=== PATIENT | male | born 1965 | race Caucasian/White ===

== ENCOUNTER 2019-02-22 14:18 | Inpatient (IN) | payer OTHER ==
[2019-02-22 14:50] LABS: Hematocrit 39 % (42-52); Hemoglobin 13.1 g/dL (14.0-18.0); Mean Corpuscular HGB Conc 33 g/dL (31-36); Mean Corpuscular Hemoglobin 31 pg (27-31); Mean Corpuscular Volume 92 fL (80-94); Platelet Count 311 10^3/uL (150-450); Red Blood Count 4.27 10^6 /uL (4.18-5.48); Red Cell Distribution Width 13 % (10-15); White Blood Count 34.6 10^3/uL (3.5-10.8)
--- NOTE | 2019-02-22 14:55 | ED ---
HPI Chest Pain - HPI Summary HPI Summary: Patient is a 53 y/o M presenting to the ED for a chief complaint of diffuse chest pain that began 2 days ago. Patient describes his chest pain as a pressure sensation that he rates as a 6/10 in severity. Patient also notes shortness of breath that worsens with exertion, generalized body aches, headache , diaphoresis, 10 pound weight loss, and neck pain that began 2 days ago and has since improved. Patient denies abdominal pain, nausea, vomiting, diarrhea, rash, or cough. He denies any aggravating and alleviating factors. PMHx is significant for HTN and DM for which he takes Metformin. He received an influenza vaccine in October 2018. - History of Current Complaint Chief Complaint: EDChestPainROMI Time Seen by Provider: 02/22/19 14:51 Hx Obtained From: Patient Onset/Duration: Atraumatic, Still Present Timing: Lasting Days - 2 days ago Initial Severity: Moderate Current Severity: Moderate Pain Intensity: 6 Pain Scale Used: 0-10 Numeric Chest Pain Location: Diffuse Chest Pain Radiates: No Character: Pressure/Squeezing Aggravating Factor(s): Nothing Alleviating Factor(s): Nothing Associated Signs and Symptoms: Positive: Chest Pain, Headaches, Shortness of Breath, Diaphoresis. Negative: Nausea, Cough, Abdominal Pain, Vomiting - Allergy/Home Medications Allergies/Adverse Reactions: Allergies Allergy/AdvReac Type Severity Reaction Status Date / Time No Known Allergies Allergy Verified 08/09/14 08:37 Home Medications: Home Medications Aspirin EC TAB* [Ecotrin EC Low Dose 81 MG*] 81 mg PO DAILY 02/22/19 [History Confirmed 02/22/19] Simvastatin (NF) [Zocor (NF)] 40 mg PO DAILY 02/22/19 [History Confirmed ] glipiZIDE [Glipizide ER] 10 mg PO BID 02/22/19 [History Confirmed 02/22/19] metFORMIN* [Glucophage 1000 MG TAB *] 1,000 mg PO BID 02/22/19 [History Confirmed 02/22/19] PMH/Surg Hx/FS Hx/Imm Hx Previously Healthy: Yes Endocrine/Hematology History: Reports: Hx Diabetes - New onset DM II- 2011 Denies: Hx Thyroid Disease Cardiovascular History: Reports: Hx Hypercholesterolemia, Hx Hypertension - meds Respiratory History: Reports: Hx Sleep Apnea - current CPAP user Denies: Hx Asthma, Hx Chronic Obstructive Pulmonary Disease (COPD) GI History: Reports: Hx Gastroesophageal Reflux Disease Denies: Hx Ulcer Sensory History: Denies: Hx Legally Blind, Hx Deafness Opthamlomology History: Denies: Hx Legally Blind EENT History: Denies: Hx Deafness - Surgical History Surgical History: None Surgery Procedure, Year, and Place: None Infectious Disease History: No Infectious Disease History: Denies: Hx Hepatitis, Hx Human Immunodeficiency Virus (HIV), Traveled Outside the [place] in Last 30 Days - Family History Known Family History: Negative: Seizure Disorder - Social History Occupation: Unemployed Alcohol Use: None Hx Substance Use: No Substance Use Type: Reports: None Hx Tobacco Use: No Smoking Status (MU): Never Smoked Tobacco Review of Systems Positive: Skin Diaphoresis, Other - Positive 10 pound weight loss Positive: Chest Pain Positive: Shortness Of Breath - With exertion. Negative: Cough Negative: Abdominal Pain, Vomiting, Diarrhea, Nausea Positive: Myalgia - Generalized body aches and neck pain Negative: Rash Positive: Headache All Other Systems Reviewed And Are Negative: Yes Physical Exam - Summary Physical Exam Summary: Constitutional: Well-developed, Obese, Alert. (-) Distressed. Diaphoretic. Skin: Warm, Dry HENT: Normocephalic; Atraumatic. No tonsilar exudates or erythema. Eyes: Conjunctiva normal Neck: Musculoskeletal ROM normal neck. (-) JVD, (-) Stridor, (-) Nuchal rigidity Cardio: Rhythm regular, rate normal, Heart sounds normal; Intact distal pulses; Radial pulses are 2+ and symmetric. (-) Murmur Pulmonary/Chest wall: Effort normal. (-) Respiratory distress, (-) Wheezes, (-) Rales Abd: Soft, (-) tenderness, (-) Distension, (-) Guarding, (-) Rebound Musculoskeletal: (-) Edema Lymph: (-) Cervical adenopathy. No cervical lymphadenopathy. Neuro: Alert, Oriented x3 Psych: Mood and affect Normal Triage Information Reviewed: Yes Vital Signs On Initial Exam: Initial Vitals Temp Pulse Resp BP Pulse Ox 98.5 F 108 22 107/38 97 02/22/19 14:19 02/22/19 14:19 02/22/19 14:19 02/22/19 14:19 02/22/19 14:19 Vital Signs Reviewed: Yes Procedures - Sedation Patient Received Moderate/Deep Sedation with Procedure: No Diagnostics - Vital Signs Vital Signs Temp Pulse Resp BP Pulse Ox 02/22/19 14:19 98.5 F 108 22 107/38 97 - Laboratory Lab Results: Lab Results 02/22/19 Range/Units 14:30 WBC 34.6 H (3.5-10.8) 10^3/uL RBC 4.27 (4.18-5.48) 10^6 /uL Hgb 13.1 L (14.0-18.0) g/dL Hct 39 L (42-52) % MCV 92 (80-94) fL MCH 31 (27-31) pg MCHC 33 (31-36) g/dL RDW 13 (10-15) % Plt Count 311 (150-450) 10^3/uL MPV 8.0 (7.4-10.4) fL Neut % (Auto) Pending Lymph % (Auto) Pending [place] % (Auto) Pending Eos % (Auto) Pending Baso % (Auto) Pending Absolute Neuts (auto) Pending Absolute Lymphs (auto) Pending Absolute Monos (auto) Pending Absolute Eos (auto) Pending Absolute Basos (auto) Pending Absolute Nucleated RBC Pending Nucleated RBC % Pending Result Diagrams: 02/22/19 14:30 02/22/19 14:30 Lab Statement: Any lab studies that have been ordered have been reviewed, and results considered in the medical decision making process. - Radiology Chest X-ray Radiology Interpretation Completed By: Radiologist Summary of Radiographic Findings: Chest X-ray IMPRESSION: LOW LUNG VOLUMES, SMALL RIGHT BASILAR INFILTRATE. Reviewed by Dr. Thomas. - CT Chest CT CT Interpretation Completed By: Radiologist Summary of CT Findings: Chest CT IMPRESSION: 1. ENLARGED THYROID GLAND WITH LARGE MASS ARISING FROM THE LEFT THYROID LOBE CAUSING COMPRESSION AND NARROWING OF THE TRACHEA. RECOMMEND AN ULTRASOUND OF THE THYROID GLAND FOR FURTHER EVALUATION. IF THE PATIENT HAS PRIOR OUTSIDE STUDIES THESE WOULD BE HELPFUL FOR COMPARISON. 2. HEPATIC STEATOSIS. 3. SPLENOMEGALY. Reviewed by Dr. Thomas. Neck CT CT Interpretation Completed By: Radiologist Summary of CT Findings: Neck CT IMPRESSION: THYROMEGALY, GREATER ON THE LEFT THAN ON THE RIGHT, WITH MASS EFFECT UPON THE PROXIMAL TRACHEA. Reviewed by Dr. Thomas. - EKG 14:25 Cardiac Rate: NL - 91 BPM EKG Rhythm: Sinus Rhythm ST Segment: Normal Ectopy: None Summary of EKG Findings: An EKG at 14:25 reveals normal sinus rhythm with 91 BPM , T wave inversions in lead III and V1, nml axis, nml intervals. No STEMI. No acute changes. No prior EKG is available to comparison. Reviewed and interpreted by Dr. Thomas. Re-Evaluation - Re-Evaluation First Eval Re-Evaluation Time: 17:15 Comment: BP improved to 90's systolic. LA elevated to 3, pending repeat. Will also repeat troponin. Got vanc/zosyn. Admitted to ICU, flu pending Chest Pain Course/Dx - Course Course Of Treatment: 53 y/o male w hx HTN, DM p/w CP, SOB, myalgias. - VS initially notable for mild tachycardia, soft blood pressure. Afebrile. On exam patient is diaphoretic, no respiratory distress. Labs notable for leukocytosis of 35, new JAVIER of 2.2 from normal creatinine. Also troponin 0.33. A significant EKG changes, suspect troponin elevation 2/2 underlying infectious process and demand ischemia. Chest x-ray shows a deviated trachea, CT noncontrast obtained shows thyroid mass. Regarding infectious process, patient is pending a flu test, no pneumonia on chest x-ray, no abdominal pain to suggest GI process, UA also ordered. Patient report mild neck pain, and headache, lower suspicion for meningitis given well appearance, lack of altered mental status, no nuchal rigidity on exam. discussed with on-call consulting sales manager who requested ENT consult for thyroid mass and concern for infection. ENT to reviewimages. Patient was given 3 L of fluids (20 cc/kg) with blood pressure in the low 90s. Patient denies any skin lesions/new rashes. Plan. IV fluid bolus (4L = 30 mL/kg). serum lactate. blood cultures x 2. broad spectrum antibiotics. transfer to higher level of care - Diagnoses Provider Diagnoses: Thyromegaly, Shortness of breath, Sepsis - Provider Notifications Discussed Care Of Patient With: Dayanna Mccullough - At 16:48, Dr. Mccullough reviewed the patients case and agrees to admit the patient to [facility] with a diagnosis of shortness of breath, sepsis, and thyromegaly. Time Discussed With Above Provider: 16:48 Instructed by Provider To: Admit As Inpatient - Critical Care Time Critical Care Time: 30-74 min - Upon my evaluation, this patient had a high probability of imminent or life-threatening deterioration due to sepsis which required my direct attention, intervention, and personal management. I have personally provided 30 minutes of critical care time exclusive of time spent on separately billable procedures. Time includes review of laboratory data, radiology results, discussion with consultants, and monitoring for potential decompensation. Interventions were performed as documented above. Discharge ED - Sign-Out/Discharge Documenting (check all that apply): Patient Departure - Admit - Discharge Plan Condition: Stable Disposition: ADMITTED TO [facility] Referrals: Marianela Gutierrez NP [Primary Care Provider] - - Billing Disposition and Condition Condition: STABLE Disposition: Admitted to [facility] - Attestation Statements Document Initiated by Scribe: Yes Documenting Scribe: Sahra Wise Provider For Whom Scribe is Documenting (Include Credential): Gutierrez Thomas MD Scribe Attestation: ISahra, scribed for Gutierrez Thomas MD on 02/22/19 at 1727. Scribe Documentation Reviewed: Yes Provider Attestation: The documentation as recorded by the Sahra morales accurately reflects the service I personally performed and the decisions made by , Gutierrez Thomas MD Status of Scribe Document: Viewed
[2019-02-22 14:58] LABS: INR 1.38 (0.82-1.09)
[2019-02-22 15:08] LABS: ALT 22 U/L (7-52); AST 30 U/L (13-39); Albumin 3.7 g/dL (3.2-5.2); Albumin/Globulin Ratio 0.9 (1-3); Alkaline Phosphatase 149 U/L (34-104); Anion Gap 17 mmol/L (2-11); BUN/Creatinine Ratio 11.3 (8-20); Blood Urea Nitrogen 25 mg/dL (6-24); CO2 Carbon Dioxide 22 mmol/L (22-32); Calcium 8.6 mg/dL (8.6-10.3); Chloride 96 mmol/L (101-111); EGFR African American 37.6 (>60); EGFR Non-African American 31.1 (>60); Globulin 3.9 g/dL (2-4); Glucose 82 mg/dL (70-100); Potassium 3.3 mmol/L (3.5-5.0); Sodium 135 mmol/L (135-145); Total Protein 7.6 g/dL (6.4-8.9)
[2019-02-22 15:11] LABS: Troponin I 0.33 ng/mL (<0.03)
[2019-02-22 15:19] LABS: ABS Basophils 0.2 10^3/ul (0-0.2); ABS Eosinophils 0.1 10^3/ul (0-0.6); ABS Lymphocytes 1.4 10^3/ul (1.0-4.8); ABS Monocytes 1.2 10^3/ul (0-0.8); ABS Neutrophils 31.8 10^3/ul (1.5-7.7); Eosinophil % 0.2 %; Lymphocyte % 4.1 %; Nucleated Red Blood Cells % 0.1
[2019-02-22] MEDS ORDERED: NS 0.9% 1000 ML** 1,000 ML IV ONE ×4 (15:37→17:33)
[2019-02-22] MEDS ORDERED: Piperacillin/Tazobac ADVAN(*) 3.375 GM in NS 0.9% 100 ML* 100 ML IVPB ONE (15:44)
[2019-02-22] MEDS ORDERED: Vancomycin(*) 2,000 MG in NS 0.9% 500 ML* 500 ML IVPB ONE (16:00)
[2019-02-22] MEDS ORDERED: NS 0.9% 500 ML* 500 ML ONE (16:00)
[2019-02-22] MEDS ORDERED: Vancomycin(*) 1,000 MG VIAL IVPB SCH (16:00)
--- NOTE | 2019-02-22 16:42 | HP ---
History of Present Illness - History of Present Illness Reason for Visit: malaise History of Present Illness: 53 yo M presented to the ED with chest pain x 2 days, shortness of breath worsened with exertion, generalized body aches, headache, diaphoresis, 10 pound weight loss and neck pain. Not meningismus. PMH of HTN and DM, otherwise healthy. On exam he was tachycardic to 108, mildly tachypneic to 22. temp normal at 98.5. Pulse ox 97 on RA. Initial BP 107/38. On exam pt noted to be diaphoretic. No nuchal rigidity. Mental status normal. No other findings. WBC 34.6. CXR with displaced trachea. CT neck and chest wtih enlarged thyroid gland with large mass arising from the left thyroid lobe causing compression and narrowing of the trachea. While in the ED his BP drifted down to the 70s. He was bolused a liter without improvement. Started on broadspectrum antibiotics. Admitted to ICU for futher care. Per patient chest pain is resolved. - Past Medical History Cardiac: HTN, Hyperlipidemia Endocrine: Diabetes - Past Surgical History Past Surgical History: None - Past Family History Family History: None - Past Social History Smoke: No Alcohol: None Drugs: None Review of Systems - Review of Systems Constitutional: Positive: Sweats, Malaise Respiratory: Positive: Shortness of Breath Cardiovascular: Positive: Chest Pain Musculoskeletal: Positive: Neck Pain, Other - Myalgias Neurological: Positive: Other - Headache Other: 10 lb weight loss - Medications/Allergies Allergies/Adverse Reactions: Allergies Allergy/AdvReac Type Severity Reaction Status Date / Time No Known Allergies Allergy Verified 08/09/14 08:37 Medications: Current Medications Sodium Chloride (Ns 0.9% 1000 Ml) 1,000 mls @ 1,000 mls/hr IV ONCE ONE Stop: 02/22/19 16:36 Last Admin: 02/22/19 15:40 Dose: 1,000 mls/hr Sodium Chloride (Ns 0.9% 1000 Ml) 1,000 mls @ 1,000 mls/hr IV ONCE ONE Stop: 02/22/19 16:43 Last Admin: 02/22/19 16:09 Dose: 1,000 mls/hr Vancomycin HCl 2,000 mg/ (Sodium Chloride) 500 mls @ 250 mls/hr IVPB ONCE ONE Stop: 02/22/19 17:59 Exam - Exam Vital Signs: Vital Signs (72 hours) 02/22/19 02/22/19 02/22/19 14:19 15:21 15:26 Temperature 98.5 F 97.1 F Pulse Rate 108 117 Respiratory 22 Rate Blood Pressure 107/38 82/52 (mmHg) O2 Sat by Pulse 97 92 Oximetry 02/22/19 02/22/19 02/22/19 15:32 15:35 15:37 Temperature Pulse Rate 97 93 88 Respiratory 21 28 Rate Blood Pressure 73/48 71/45 (mmHg) O2 Sat by Pulse 95 94 94 Oximetry General: Alert, Oriented x3, Cooperative, No acute distress HEENT: Atraumatic, EOMI Lungs: Clear to auscultation, Normal air movement Cardiovascular: Regular rate, Normal S1, Normal S2 Abdomen: Normal bowel sounds, Soft, No tenderness, Other - spleen enlarged, tip palpable Extremities: No clubbing, No cyanosis, Other - warm, dry (in ED was diaphoretic) Skin: No rashes, No breakdown, No significant lesion - No lymphadenopathy palpated at neck, axilla or groin Neurological: Normal speech, Normal tone Psych/Mental Status: Mental status NL, Mood NL Assessment/Plan - Assessment/Plan Assessment: 53 yo M presents with several day history of sore throat, chest pain, myalgia and poor appetite. Admitted for hypotension and leukocytosis concerning for sepsis. CT with new finding of thyroid mass and splenomegaly. Plan: Hospital Diagnoses: #1: Sepsis associated hypotension #2: NSTEMi, type 2 #3: thyroid mass #4: Leukocytosis Cardiovascular: (1) Sepsis associated hypotension;(2) NSTEMI, type 2; (3) essential HTN; (4) Hypercholesterolemia -- HR 84-117 -- SBP 73-107 -- Telemetry -- Cardiac markers Trop 0.33, follow trend Home meds: Simvastatin, ASA Pulmonary: (1) tracheal deviation secondary to thyroid mass; (2)hx of sleep apnea -- RR 21-36 -- sats 92-97 on RA -- CXR: underinflation. small right lung base infiltrate. Home meds: None Gastrointestinal: (1) Elevated ALK; (2) GERD; (3) Hepatic steatosis (seen on CT chest 02/22/2019) -- LFTs Tbili 0.70 ALK 149, follow trend AST 30 ALT 22 -- diet: NPO -- bowel regimen: None -- ulcer prophylaxis:not indicated at this time Home meds: None Endocrine: (1) Englargement of thyroid gland with heterogeneity; (2) Type 2 diabetes mellitus; (3) Splenomegaly (seen on CT chest 02/22/2019) -- monitor BGs -- TSH 3.0, within normal limits Home meds: Glipizide, Metformin Renal: (1) Hypokalemia; (2) Prerenal azotemia vs JAVIER -- UOP: strict ins and outs -- Cr 2.21, follow trend, hydrate -- Lytes Na 135 K 3.3, replace Ca 8.6 Mag ordered Phos ordered Home meds: None Infectious disease: (1) Sepsis vs SIRS; (2) Leukocytosis -- Tmax 98.5 -- WBC 34.6 -- Micro 02/22 Flu A&B pending MRSA pending UA ordered blood in process -- ABX Zosyn Vancomycin Home meds: None Neurologic: No acute issues Home meds: None Hematological: (1) Anemia -- Hgb 13.1, follow trend -- Plt 311 -- Coags INR 1.38 -- DVT prophylaxis: SQ Heparin Home meds: ASA Metabolic: No acute issues Home meds: None Other: No acute issues Home meds: None Deep vein thrombosis prophylaxis: SQ Heparin Dietary: Not indicated at this time Condition: serious Prognosis: guarded Code status: full Disposition: admit to ICU Cumulative time spent in the care of this patient (excluding any procedure time) : at least 60 minutes. Patient care included clinical interview (with patient and/or family), bedside exam of the patient, review of labs, x-rays, and other ancillary data, coordination of (respiratory, nursing care, review of patient's records, discussion regarding patients management with involved consultants, primary physician, pharmacists, and other healthcare personnel (dietary, case management , physical/occupational therapy etc.)
[2019-02-22 18:45] LABS: Influenza A Molecular NEGATIVE (Negative); Influenza B Molecular NEGATIVE (Negative)
[2019-02-22] MEDS: Morphine INJ* 2 MG/ML 1 ML SYRINGE (TWO MG - NEW SYRINGE VERSION) IV PRN ×2 (19:27→21:19)
[2019-02-22] MEDS ORDERED: Morphine INJ* 2 MG/ML 1 ML SYRINGE (TWO MG - NEW SYRINGE VERSION) IV ONE (21:00)
[2019-02-22 21:11] LABS: Free T4 0.91 ng/dL (0.61-1.12)
[2019-02-22 21:15] LABS: Thyroid Peroxidase Antibodies 76.02 IU/mL (<9)
[2019-02-22] MEDS ORDERED: Zosyn per Pharmacy* NOTE FOLLOW UP PRN (21:26)
[2019-02-22 21:48] LABS: Urine Appearance Cloudy; Urine Bilirubin Negative (Negative); Urine Blood Negative (Negative); Urine Color Amber; Urine Glucose Negative (Negative); Urine Ketones Negative (Negative); Urine Nitrite Negative (Negative); Urine Protein 2+(100 mg/dL) (Negative); Urine Specific Gravity 1.021 (1.010-1.030); Urine Urobilinogen Negative (Negative)
[2019-02-22 21:54] LABS: Urine Bacteria 1+ (Absent); Urine Red Blood Cell Trace(0-2/hpf) (Absent); Urine Squamous Epithelial Cell Present (Absent); Urine White Blood Cell 2+(11-20/hpf) (Absent)
[2019-02-22] MEDS: Albumin Human 25%* 25 GM/100 ML IV SCH (21:54)
[2019-02-22] MEDS: ZOSYN 3.375 GM Q8H per EXTENDED INFUSION IVPB SCH ×2 (22:13)
--- NOTE | 2019-02-22 22:15 | PN ---
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 Thyroglobulin Ab ordered
[2019-02-22] MEDS ORDERED: Acetaminophen TAB* 325 MG PO PRN (22:35)
[2019-02-22] MEDS ORDERED: LACTATED RINGERS 1000 ML/HR *Bolus IV ONE (23:00)
[2019-02-22] MEDS ORDERED: Dextrose 50% VIAL 50 ml ONE (23:15)
[2019-02-23] MEDS ORDERED: Dextrose 50% Syringe 50 ML* 25 GM/50 ML SYRINGE IV PUSH PRN (00:16)
[2019-02-23] MEDS ORDERED: Dextrose 50% VIAL 50 ml ONE (00:59)
[2019-02-23] MEDS: Lactated Ringers 1000 ML Bag* 1,000 ML IV SCH ×2 (01:11→17:13)
[2019-02-23] MEDS: Albumin Human 25%* 25 GM/100 ML IV SCH ×3 (04:04→17:12)
[2019-02-23 05:05] LABS: ABS Basophils 0.1 10^3/ul (0-0.2); ABS Eosinophils 0.1 10^3/ul (0-0.6); ABS Lymphocytes 2.2 10^3/ul (1.0-4.8); ABS Neutrophils 17.5 10^3/ul (1.5-7.7); Eosinophil % 0.4 %; Hematocrit 29 % (42-52); Hemoglobin 9.9 g/dL (14.0-18.0); Lymphocyte % 10.4 %; Mean Corpuscular HGB Conc 34 g/dL (31-36); Mean Corpuscular Hemoglobin 32 pg (27-31); Mean Corpuscular Volume 92 fL (80-94); Mean Platelet Volume 8.3 fL (7.4-10.4); Platelet Count 246 10^3/uL (150-450); Red Blood Count 3.14 10^6 /uL (4.18-5.48); Red Cell Distribution Width 13 % (10-15); White Blood Count 20.8 10^3/uL (3.5-10.8)
[2019-02-23 05:18] LABS: BUN/Creatinine Ratio 17.1 (8-20); Calcium 7.1 mg/dL (8.6-10.3); EGFR African American 63.7 (>60); EGFR Non-African American 52.6 (>60); Magnesium 1.4 mg/dL (1.9-2.7); Potassium 3.2 mmol/L (3.5-5.0)
[2019-02-23] MEDS: ZOSYN 3.375 GM Q8H per EXTENDED INFUSION IVPB SCH ×6 (05:45→21:44)
[2019-02-23] MEDS ORDERED: Magnesium Sulfate 2 GM IV* 2 GM/50 ML BAG IVPB ONE (05:52)
[2019-02-23] MEDS ORDERED: Potassium Chlor TAB* 20 MEQ TAB.ER PO ONE (05:52)
[2019-02-23] MEDS: Morphine INJ* 2 MG/ML 1 ML SYRINGE (TWO MG - NEW SYRINGE VERSION) IV PRN (06:10)
[2019-02-23] MEDS ORDERED: Calcium Gluconate INJ* 1 GM in NS 0.9% 50 ML* 50 ML IVPB ONE (08:30)
[2019-02-23] MEDS: KCL 10 MEQ/50 ML IVPREMIX* 10 MEQ/50 ML BAG IV SCH ×4 (08:43→13:50)
--- NOTE | 2019-02-23 10:47 | PN ---
Date of Service: 02/23/19 - HD 2 Critical Care Services: 53 yo M presented to the ED with chest pain x 2 days, shortness of breath worsened with exertion, generalized body aches, headache, diaphoresis, 10 pound weight loss and neck pain. Not meningismus. PMH of HTN and DM, otherwise healthy. On exam he was tachycardic to 108, mildly tachypneic to 22. temp normal at 98.5. Pulse ox 97 on RA. Initial BP 107/38. On exam pt noted to be diaphoretic. No nuchal rigidity. Mental status normal. No other findings. WBC 34.6. CXR with displaced trachea. CT neck and chest wtih enlarged thyroid gland with large mass arising from the left thyroid lobe causing compression and narrowing of the trachea. While in the ED his BP drifted down to the 70s. He was bolused a liter without improvement. Started on broadspectrum antibiotics. Admitted to ICU for futher care. Per patient chest pain is resolved. 02/23: Hypotensive overnight requiring IVF boluses, albumin and Midodrine. Feeling better today. Vital Signs: Temp Pulse Resp BP SpO2 FiO2 98.6 F 85 37 116/65 95 21 02/23/19 09:01 02/23/19 10:11 02/23/19 10:11 02/23/19 10:11 02/23/19 10:11 02/23 04:00 Physical Exam: Gen: resting comfortably HEENT: intact Lungs: CTAB Cardiac: RRR Abdomen: soft, obese, nontender Extremities: warm, dry Neuro: alert, oriented. Fluid Balance (Past 24 Hours): I= O= Net Intake & Output 02/21/19 02/22/19 02/23/19 02/24/19 06:59 06:59 06:59 06:59 Intake Total 7842 100 Output Total 1015 520 Balance 6827 -420 Weight 315 lb 4.176 oz Intake: IV Fluids 6602 LR 2502 NS (0.9%) 1000 IVPB 1140 50 NS (0.9%) 1140 50 Oral 50 Albumin 100 Output: Costello 1015 520 Other: Date of Last Bowel 02/23/18 Movement # Bowel Movements 1 Estimated Stool Amount Small Labs: Laboratory Results - last 24 hr 01/03/20 01/03/20 01/03/20 14:30 14:30 14:30 WBC 34.6 H RBC 4.27 Hgb 13.1 L Hct 39 L MCV 92 MCH 31 MCHC 33 RDW 13 Plt Count 311 MPV 8.0 Neut % (Auto) 91.8 Lymph % (Auto) 4.1 [place] % (Auto) 3.4 Eos % (Auto) 0.2 Baso % (Auto) 0.5 Absolute Neuts (auto) 31.8 H Absolute Lymphs (auto) 1.4 Absolute Monos (auto) 1.2 H Absolute Eos (auto) 0.1 Absolute Basos (auto) 0.2 Absolute Nucleated RBC 0.0 Immature Gran % 12.0 H Neutrophils % 77.0 Band Neutrophils % 12.0 H Lymphocytes % 5.0 Monocytes % 6.0 Nucleated RBC % 0.1 Normal RBC Morphology Normal INR (Anticoag Therapy) 1.38 H Sodium 135 Potassium 3.3 L Chloride 96 L Carbon Dioxide 22 Anion Gap 17 H BUN 25 H Creatinine 2.21 H Est GFR ( Amer) 37.6 Est GFR (Non-Af Amer) 31.1 BUN/Creatinine Ratio 11.3 Glucose 82 POC Glucose (mg/dL) Lactic Acid Calcium 8.6 Magnesium Total Bilirubin 0.70 AST 30 ALT 22 Alkaline Phosphatase 149 H Troponin I 0.33 H* Total Protein 7.6 Albumin 3.7 Globulin 3.9 Albumin/Globulin Ratio 0.9 L TSH 3.00 Free T4 Urine Color Urine Appearance Urine pH Ur Specific [place] Urine Protein Urine Ketones Urine Blood Urine Nitrate Urine Bilirubin Urine Urobilinogen Ur Leukocyte Esterase Urine WBC (Auto) Urine RBC (Auto) Ur Squamous Epith Cells Urine Bacteria Urine Glucose Thyroglobulin Antibody Thyroid Peroxidase Ab Influenza A (Rapid) Influenza B (Rapid) 02/22/19 02/22/19 02/22/19 16:03 18:00 19:30 WBC RBC Hgb Hct MCV MCH MCHC RDW Plt Count MPV Neut % (Auto) Lymph % (Auto) [place] % (Auto) Eos % (Auto) Baso % (Auto) Absolute Neuts (auto) Absolute Lymphs (auto) Absolute Monos (auto) Absolute Eos (auto) Absolute Basos (auto) Absolute Nucleated RBC Immature Gran % Neutrophils % Band Neutrophils % Lymphocytes % Monocytes % Nucleated RBC % Normal RBC Morphology INR (Anticoag Therapy) Sodium Potassium Chloride Carbon Dioxide Anion Gap BUN Creatinine Est GFR ( Amer) Est GFR (Non-Af Amer) BUN/Creatinine Ratio Glucose POC Glucose (mg/dL) Lactic Acid 3.0 H* Calcium Magnesium Total Bilirubin AST ALT Alkaline Phosphatase Troponin I 0.20 H* Total Protein Albumin Globulin Albumin/Globulin Ratio TSH Free T4 Urine Color Urine Appearance Urine pH Ur Specific [place] Urine Protein Urine Ketones Urine Blood Urine Nitrate Urine Bilirubin Urine Urobilinogen Ur Leukocyte Esterase Urine WBC (Auto) Urine RBC (Auto) Ur Squamous Epith Cells Urine Bacteria Urine Glucose Thyroglobulin Antibody Thyroid Peroxidase Ab Influenza A (Rapid) Negative Influenza B (Rapid) Negative 02/22/19 02/22/19 02/22/19 19:30 19:30 21:36 WBC RBC Hgb Hct MCV MCH MCHC RDW Plt Count MPV Neut % (Auto) Lymph % (Auto) [place] % (Auto) Eos % (Auto) Baso % (Auto) Absolute Neuts (auto) Absolute Lymphs (auto) Absolute Monos (auto) Absolute Eos (auto) Absolute Basos (auto) Absolute Nucleated RBC Immature Gran % Neutrophils % Band Neutrophils % Lymphocytes % Monocytes % Nucleated RBC % Normal RBC Morphology INR (Anticoag Therapy) Sodium Potassium Chloride Carbon Dioxide Anion Gap BUN Creatinine Est GFR ( Amer) Est GFR (Non-Af Amer) BUN/Creatinine Ratio Glucose POC Glucose (mg/dL) Lactic Acid 1.4 Calcium Magnesium Total Bilirubin AST ALT Alkaline Phosphatase Troponin I Total Protein Albumin Globulin Albumin/Globulin Ratio TSH Free T4 0.91 Urine Color Madhuri Urine Appearance Cloudy Urine pH 5.0 Ur Specific [place] 1.021 Urine Protein 2+(100 mg/dl) A Urine Ketones Negative Urine Blood Negative Urine Nitrate Negative Urine Bilirubin Negative Urine Urobilinogen Negative Ur Leukocyte Esterase Negative Urine WBC (Auto) 2+(11-20/hpf) A Urine RBC (Auto) Trace(0-2/hpf) Ur Squamous Epith Cells Present A Urine Bacteria 1+ A Urine Glucose Negative Thyroglobulin Antibody Thyroid Peroxidase Ab 76.02 H Influenza A (Rapid) Influenza B (Rapid) 02/22/19 02/22/19 02/23/19 23:04 23:11 00:55 WBC RBC Hgb Hct MCV MCH MCHC RDW Plt Count MPV Neut % (Auto) Lymph % (Auto) [place] % (Auto) Eos % (Auto) Baso % (Auto) Absolute Neuts (auto) Absolute Lymphs (auto) Absolute Monos (auto) Absolute Eos (auto) Absolute Basos (auto) Absolute Nucleated RBC Immature Gran % Neutrophils % Band Neutrophils % Lymphocytes % Monocytes % Nucleated RBC % Normal RBC Morphology INR (Anticoag Therapy) Sodium Potassium Chloride Carbon Dioxide Anion Gap BUN Creatinine Est GFR ( Amer) Est GFR (Non-Af Amer) BUN/Creatinine Ratio Glucose POC Glucose (mg/dL) 64 L 68 L Lactic Acid Calcium Magnesium Total Bilirubin AST ALT Alkaline Phosphatase Troponin I 0.02 Total Protein Albumin Globulin Albumin/Globulin Ratio TSH Free T4 Urine Color Urine Appearance Urine pH Ur Specific [place] Urine Protein Urine Ketones Urine Blood Urine Nitrate Urine Bilirubin Urine Urobilinogen Ur Leukocyte Esterase Urine WBC (Auto) Urine RBC (Auto) Ur Squamous Epith Cells Urine Bacteria Urine Glucose Thyroglobulin Antibody Thyroid Peroxidase Ab Influenza A (Rapid) Influenza B (Rapid) 02/23/19 02/23/19 02/23/19 01:16 03:35 04:17 WBC RBC Hgb Hct MCV MCH MCHC RDW Plt Count MPV Neut % (Auto) Lymph % (Auto) [place] % (Auto) Eos % (Auto) Baso % (Auto) Absolute Neuts (auto) Absolute Lymphs (auto) Absolute Monos (auto) Absolute Eos (auto) Absolute Basos (auto) Absolute Nucleated RBC Immature Gran % Neutrophils % Band Neutrophils % Lymphocytes % Monocytes % Nucleated RBC % Normal RBC Morphology INR (Anticoag Therapy) Sodium 137 Potassium 3.2 L Chloride 105 Carbon Dioxide 22 Anion Gap 10 BUN 24 Creatinine 1.40 H Est GFR ( Amer) 63.7 Est GFR (Non-Af Amer) 52.6 BUN/Creatinine Ratio 17.1 Glucose 78 POC Glucose (mg/dL) 175 H 74 Lactic Acid Calcium 7.1 L Magnesium 1.4 L Total Bilirubin AST ALT Alkaline Phosphatase Troponin I Total Protein Albumin Globulin Albumin/Globulin Ratio TSH Free T4 Urine Color Urine Appearance Urine pH Ur Specific [place] Urine Protein Urine Ketones Urine Blood Urine Nitrate Urine Bilirubin Urine Urobilinogen Ur Leukocyte Esterase Urine WBC (Auto) Urine RBC (Auto) Ur Squamous Epith Cells Urine Bacteria Urine Glucose Thyroglobulin Antibody Thyroid Peroxidase Ab Influenza A (Rapid) Influenza B (Rapid) 02/23/19 02/23/19 02/23/19 04:17 04:17 04:17 WBC 20.8 H RBC 3.14 L Hgb 9.9 L Hct 29 L MCV 92 MCH 32 H MCHC 34 RDW 13 Plt Count 246 MPV 8.3 Neut % (Auto) 84.3 Lymph % (Auto) 10.4 [place] % (Auto) 4.7 Eos % (Auto) 0.4 Baso % (Auto) 0.2 Absolute Neuts (auto) 17.5 H Absolute Lymphs (auto) 2.2 Absolute Monos (auto) 1.0 H Absolute Eos (auto) 0.1 Absolute Basos (auto) 0.1 Absolute Nucleated RBC 0.0 Immature Gran % Neutrophils % Band Neutrophils % Lymphocytes % Monocytes % Nucleated RBC % 0.0 Normal RBC Morphology INR (Anticoag Therapy) Sodium Potassium Chloride Carbon Dioxide Anion Gap BUN Creatinine Est GFR ( Amer) Est GFR (Non-Af Amer) BUN/Creatinine Ratio Glucose POC Glucose (mg/dL) Lactic Acid 0.7 Calcium Magnesium Total Bilirubin AST ALT Alkaline Phosphatase Troponin I Total Protein Albumin Globulin Albumin/Globulin Ratio TSH Free T4 Urine Color Urine Appearance Urine pH Ur Specific [place] Urine Protein Urine Ketones Urine Blood Urine Nitrate Urine Bilirubin Urine Urobilinogen Ur Leukocyte Esterase Urine WBC (Auto) Urine RBC (Auto) Ur Squamous Epith Cells Urine Bacteria Urine Glucose Thyroglobulin Antibody 0.0 Thyroid Peroxidase Ab Influenza A (Rapid) Influenza B (Rapid) Studies: 02/22 CT brain - no acute findings 02/22 CT neck - thyromegaly, greater on the left than on the right, with mass effect upon the proximal trachea / CT chest - enlarged thyroid gland with mass effect causing compression and narrowing of the trachea. hepatic steatosis splenomegaly / CXR - low lung volumes. small right basilar infiltrate. Nutrition: general diet Impression: 53 yo M with PMH of DM, HLD and HTN presented on 02/22 with recent 10 lb weight loss, diffuse myalgias, malaise and diaphoresis. Found to have enlarged thyroid , splenomegaly and leukocytosis. Admitted to ICU for soft BPs responsive to IVF. Plan: Plan: Hospital Diagnoses: #1: Sepsis associated hypotension #2: NSTEMi, type 2 #3: thyroid mass #4: Leukocytosis Cardiovascular: (1) Sepsis associated hypotension;(2) NSTEMI, type 2; (3) essential HTN; (4) Hypercholesterolemia -- HR 60-117, < 85 since midnight -- SBP 71-137 -- Telemetry -- Cardiac markers Trop 0.02 from 0.20 from 0.33 -- Scheduled Albumin -- Scheduled Midodrine Home meds: Simvastatin, ASA Pulmonary: (1) tracheal deviation secondary to thyroid mass; (2) hx of sleep apnea -- RR 20-37 -- sats 89-98 on RA -- CXR, 02/22: underinflation. small right lung base infiltrate. Home meds: None Gastrointestinal: (1) Elevated ALK; (2) GERD; (3) Hepatic steatosis (seen on CT chest 02/22/2019) -- LFTs Tbili 0.70 ALK 149, follow trend AST 30 ALT 22 -- diet: general diet -- bowel regimen: None -- ulcer prophylaxis:not indicated at this time Home meds: None Endocrine: (1) Englargement of thyroid gland with heterogeneity; (2) Type 2 diabetes mellitus; (3) Splenomegaly (seen on CT chest 02/22/2019) -- CT abdomen ordered to assess adrenals -- monitor BGs -- Thyroid funciton tests TSH 3.0, within normal limits T4 0.91, within normal limits TPO 76.02, positive -- ENT consulted in ED -- Hematology consulted for spleunomegaly and leukocytosis Home meds: Glipizide, Metformin Renal: (1) Hypokalemia; (2) Prerenal azotemia vs JAVIER, improving -- UOP: 43 ml/hr -- Cr 1.40 from 2.21, follow trend, hydrate -- Lytes Na 137 from 135 K 3.2, replaced Ca 7.1. replaced Mag 1.4, replaced -- IVF: LR @ 100 ml/hr Home meds: None Infectious disease: (1) Sepsis vs SIRS; (2) Leukocytosis -- Tmax 100.1 -- WBC 20.8 from 34.6 -- Micro 02/23 CMV ordered 02/22 Flu A&B pending MRSA not detected UA negative blood in process EBV ordered -- ABX Zosyn Vancomycin Home meds: None Neurologic: (1) Diffuse myalgias, headaches -- PRN Tylenol -- PRN Morphine for pain control Home meds: None Hematological: (1) Anemia -- Hgb 9.9 from 13.1, dilutional, follow trend -- Plt 246 from 311 -- DVT prophylaxis: SQ Heparin -- Hematology consulted Home meds: ASA Metabolic: (1) Lactic acidosis, resolved -- Lactic acid 1.4 from 3.0 Home meds: None Other: No acute issues Home meds: None Deep vein thrombosis prophylaxis: SQ Heparin Dietary: Not indicated at this time Condition: serious Prognosis: guarded Code status: full Disposition: continue ICU Care. to floor when sepsis associated hypotension resolved Cumulative time spent in the care of this patient (excluding any procedure time) : at least 50 minutes. Patient care included clinical interview (with patient and/or family), bedside exam of the patient, review of labs, x-rays, and other ancillary data, coordination of (respiratory, nursing care, review of patient's records, discussion regarding patients management with involved consultants, primary physician, pharmacists, and other healthcare personnel (dietary, case management , physical/occupational therapy etc.) Critical Care Time: none
[2019-02-23] MEDS ORDERED: Hemorrhoidal OINT PR PRN (11:09)
[2019-02-23] MEDS ORDERED: Witch Hazel PAD* JAR TOPICAL PRN (11:10)
--- NOTE | 2019-02-23 11:56 | CONS ---
CONSULTATION REPORT: DATE OF CONSULT: 02/22/19 REASON FOR CONSULTATION: Leukocytosis and anemia. HISTORY OF PRESENT ILLNESS: This is a 53-year-old male with past medical history significant for obesity and diabetes, but has generally been healthy. He presented with 1 week of acute diaphoresis, diffuse bone achiness, headaches as well as increased shortness of breath. Symptoms started approximately 6 days ago. He has been sweating so much that he is going through his clothing and getting the couch wet. He has been very weak. When he tries to walk, he has been quite short of breath. He has not had any URI symptoms, he has not checked a fever at home, but his mother feels like he has been very warm. No urinary symptoms. He has not had a cough. Shortness of breath has been long-standing. Both the mother and brother said he has difficult time walking around, but it has been worse this past week. He has lost approximately 10 pounds over 2 weeks, which is attributed to decreased appetite. He has not had any diarrhea. He has had a headache, no other focal neurologic symptoms. On presentation to the emergency room, he was tachycardic with a heart rate of 108 and tachypneic, respiration 22, stable blood pressure. He had a white count of 35,000 and a chest x-ray showed a displaced trachea. He had a CT scan of the neck and then chest. He was found to have a large left- sided thyroid mass with displacement and compression of the trachea. He has slightly enlarged liver slightly enlarged spleen, no visible lymphadenopathy, no pulmonary infiltrate. His hemoglobin was 13.1 on admission with a creatinine of 2.21 from baseline of less than 1. With hydration his hemoglobin has dropped to 9.9, he has an MCV of 92, RDW 13, platelets 246. White count was 35 on admission, it dropped to 20.8. He has got a low sodium. His creatinine has improved to 1.4 today. Slightly elevated alkaline phosphatase. Normal ALT, AST, bilirubin and he had a TSH of 3 and a free T4 of 0.91. UA with +2 white blood cells otherwise negative. He did have an elevated thyroperoxidase antibody at 76.2. Blood film shows leukocytosis with left shift, normocytic anemia, mild thrombocytosis. No red blood cell or white blood cell morphologic abnormalities. PAST MEDICAL HISTORY: 1. Obesity. 2. Diabetes. 3. Osteoarthritis, left knee. 4. Sleep apnea. PAST SURGICAL HISTORY: None. FAMILY HISTORY: Diffuse history of thyroid disease. Mother had thyroid sister and several other nieces. SOCIAL HISTORY: He lives in a trailer. He has his TV and phone turned off because he has been unable to pay his bills recently. Mother and father are with him in the hospital, and are his primary support. He does not smoke, drinks very rarely. Currently, not working. REVIEW OF SYSTEMS: As noted above. In addition, he has some complaints of chronic fatigue. Otherwise, 14 point review is negative except for HPI. PHYSICAL EXAM: This morning temperature 98.4, heart rate 64, respirations 22, sat 92% on 3 L, BP 195/51. HEENT: Oral mucosa moist, conjunctiva pale. He has thick neck, palpable left thyroid mass. Lungs: Clear to auscultation. Heart: Regular rate and rhythm. S1, S2. No murmurs or gallops. Abdomen: Nonspecific exam because of obesity, but he is nontender, nondistended. Nodes: No palpable peripheral lymphadenopathy and extremities warm to the touch, trace bilateral lower extremity edema. Neurologically: Alert and oriented x3, grossly nonfocal. Skin: No rashes. DIAGNOSTIC STUDIES/LAB DATA: Labs and CT scans as noted above ASSESSMENT AND PLAN: A 53-year-old male who presents with a large thyroid mass and a chronic progressive shortness of breath. Symptoms worsened by acute febrile illness over the past 5 days. No clear source of bacterial infection I suspect leukocytosis and acute symptoms are infectious, viral. Differential diagnosis for anemia includes acute phase reactants, could have underlying iron or B12 deficiency. Differential diagnosis of leukocytosis is reactive most likely. Thyroid mass could be benign or malignant. 1. Anemia. We will check iron B12 and serum protein electrophoresis. If he is discharged home in the next 1 to 2 days we will follow up in clinic. 2. Leukocytosis. Follow, no additional evaluation and less persistent. 3. Mild splenomegaly likely secondary to fatty liver and nonalcoholic steatohepatitis. We will consider liver ultrasound elasticity as an outpatient. 4. Thyroid mass. Elevated thyroperoxidase antibodies. Likely need FNA and consultation with ENT. Given obstructive symptoms surgery may be appropriate. 5. We will continue to follow up on blood work sent today. [id number]/[facility] #: [id number] [facility]
[2019-02-23] MEDS ORDERED: Iodixanol* (CONTRAST) 320 MG/ML 100 ML SDV IV SCH (12:06)
[2019-02-23 12:16] LABS: Albumin 3.3 g/dL (3.2-5.2)
[2019-02-23 12:21] LABS: ALT 11 U/L (7-52); Albumin/Globulin Ratio 1.8 (1-3); Alkaline Phosphatase 47 U/L (34-104); Globulin 1.8 g/dL (2-4); Glucose 82 mg/dL (70-100); Total Protein 5.1 g/dL (6.4-8.9)
[2019-02-23 13:10] LABS: Total Iron Binding Capacity 162 mcg/dL (250-450); Transferrin 116 mg/dL (203-362)
[2019-02-23 16:13] LABS: Glucose 214 mg/dL (70-100)
[2019-02-23 17:06] LABS: HIV 4th Generation Nonreactive (Nonreactive)
[2019-02-23 18:34] LABS: Ferritin 188.9 ng/mL (24-336)
[2019-02-23 20:59] LABS: BUN/Creatinine Ratio 19.8 (8-20); Calcium 8.2 mg/dL (8.6-10.3); EGFR African American 98.4 (>60); EGFR Non-African American 81.3 (>60); Magnesium 1.8 mg/dL (1.9-2.7)
[2019-02-24] MEDS: Lactated Ringers 1000 ML Bag* 1,000 ML IV SCH ×2 (04:11→14:35)
[2019-02-24] MEDS: ZOSYN 3.375 GM Q8H per EXTENDED INFUSION IVPB SCH ×6 (05:10→22:11)
[2019-02-24 05:53] LABS: Albumin 2.8 g/dL (3.2-5.2); Albumin/Globulin Ratio 1.1 (1-3); Globulin 2.5 g/dL (2-4); Indirect Bilirubin 0.4 mg/dL (0.3-1.0); Total Bilirubin 0.6 mg/dL (0.2-1.0); Total Protein 5.3 g/dL (6.4-8.9)
[2019-02-24] MEDS ORDERED: Ibuprofen TAB* 400 MG PO ONE (11:30)
[2019-02-24] MEDS ORDERED: Ibuprofen TAB* 200 MG PO PRN (11:30)
--- NOTE | 2019-02-24 17:21 | PN ---
Subjective Date of Service: 02/24/19 Interval History: Reports feeling better.Headache present. But other constitutional symptoms better.Ongoing SOB Objective Active Medications: Acetaminophen (Tylenol Tab*) 650 mg PO Q4H PRN PRN Reason: PAIN - MILD Dextrose (D50w Syringe 50 Ml*) 25 gm IV PUSH .FOR FS < 60 - SS PRN PRN Reason: FS < 60 Piperacillin Sod/Tazobactam (Sod 3.375 gm/ Sodium Chloride) 100 mls @ 25 mls/ hr IVPB Q8H [facility] Last Admin: 02/24/19 13:43 Dose: 25 mls/hr Lactated Ringer's (Lactated Ringers 1000 Ml Bag*) 1,000 mls @ 100 mls/hr IV PER RATE [facility] Last Admin: 02/24/19 14:35 Dose: 100 mls/hr Ibuprofen (Advil Tab*) 200 mg PO Q6H PRN PRN Reason: PAIN - MODERATE Iodixanol (Visipaque* 320 (Contrast)) 141 ml IV ONCE [facility] Stop: 02/25/19 12:05 Last Admin: 02/23/19 12:36 Dose: 141 ml Midodrine (Midodrine) 10 mg PO Q6HR [facility]; Protocol Last Admin: 02/24/19 11:46 Dose: Not Given Morphine Sulfate (Morphine Inj (Syringe))*) 2 mg IV Q2H PRN PRN Reason: PAIN - SEVERE Last Admin: 02/23/19 06:10 Dose: 2 mg Pharmacy Consult (Zosyn Per Pharmacy*) 1 note FOLLOW UP . PRN PRN Reason: PER PROTOCOL Phenyleph/Shark Oil/Min Oil/Petrol (Preparation H*) 1 applic CO TID PRN PRN Reason: PAIN - MILD Witch Judith (Tucks*) 1 pad TOPICAL DAILY PRN PRN Reason: HEAVY BLEEDING Vital Signs - 8 hr 02/24/19 02/24/19 11:12 15:34 Temperature 98.5 F 97.8 F Pulse Rate 75 73 Respiratory 17 16 Rate Blood Pressure 139/76 147/76 (mmHg) O2 Sat by Pulse 96 96 Oximetry Oxygen Devices in Use Now: None Eyes: No Scleral Icterus Respiratory: Symmetrical Chest Expansion and Respiratory Effort, Clear to Auscultation Cardiovascular: NL Sounds; No Murmurs; No JVD Abdominal: NL Sounds; No Tenderness; No Distention Extremities: No Edema Neurological: Alert and Oriented x 3 Result Diagrams: 02/23/19 04:17 02/23/19 20:37 Additional Lab and Data: Lab Results 02/22/19 Range/Units 14:30 WBC 34.6 H (3.5-10.8) 10^3/uL RBC 4.27 (4.18-5.48) 10^6 /uL Hgb 13.1 L (14.0-18.0) g/dL Hct 39 L (42-52) % MCV 92 (80-94) fL MCH 31 (27-31) pg MCHC 33 (31-36) g/dL RDW 13 (10-15) % Plt Count 311 (150-450) 10^3/uL MPV 8.0 (7.4-10.4) fL Neut % (Auto) Pending Lymph % (Auto) Pending Alfalfa % (Auto) Pending Eos % (Auto) Pending Baso % (Auto) Pending Absolute Neuts (auto) Pending Absolute Lymphs (auto) Pending Absolute Monos (auto) Pending Absolute Eos (auto) Pending Absolute Basos (auto) Pending Absolute Nucleated RBC Pending Nucleated RBC % Pending Microbiology and Other Data: Microbiology 02/22/19 16:03 Aerobic Blood Culture - Preliminary Blood Venous No Growth Day 2 Anaerobic Blood Culture - Preliminary Streptococcus Constellatus Blood MRSA/MSSA (PCR) - Final Mrsa Negative S.aureus Negative 02/22/19 21:36 Urine Culture - Final Urine No Growth (<1,000 CFU/mL) 02/22/19 16:03 Aerobic Blood Culture - Preliminary Blood Venous No Growth Day 1 Anaerobic Blood Culture - Preliminary Bacteroides Fragilis 02/22/19 18:00 Nasal Screen MRSA (PCR) - Final Nasal Mrsa Not Detected Assess/Plan/Problems-Billing Assessment: - Patient Problems (1) Sepsis Current Visit: Yes Status: Acute Comment: Blood cx positive for Strep Constellatus and Bacteroides Fragilis Unclear source No abscess, no IV drug use.Does have tracheal deviation from large thyroid mass. ?Anerobic pocket/collection there as source Will also start with TTE to r/o Endocarditis and consider CATRACHITO if needed Will repeat blood culture Odd bugs growing Both vials positive with sig leukocytosis and features of sepsis Responding to Zosyn with improvement in leukocytosis and clinical presentation.So will continue and repeat cultures and await final results and sensitivity and adjust antibiotics Will request consult with ID tomorrow for input (2) Thyroid mass Current Visit: Yes Status: Acute Comment: Large mass Benign versus malignant May need FNA/Biopsy versus surgery as pt does have some airway compromise and already has sleep apnea ENT consulted and will f/u with them tomorrow Per plans per ENT discretion Appreciate Dr Mead input No need for oxygen currently in day time No stridor Will eval closely while asleep Inc sob over 4-5 days per pt (3) Leukocytosis Current Visit: Yes Status: Acute Code(s): D72.829 - ELEVATED WHITE BLOOD CELL COUNT, UNSPECIFIED SNOMED Code(s): 621699067 Comment: Likely reactive with improvement with iv antibiotics will monitor (4) Sleep apnea Current Visit: Yes Status: Acute Code(s): G47.30 - SLEEP APNEA, UNSPECIFIED SNOMED Code(s): 09713588 Comment: Continue CPAP
[2019-02-25] MEDS: Lactated Ringers 1000 ML Bag* 1,000 ML IV SCH ×2 (01:31→11:39)
[2019-02-25] MEDS: ZOSYN 3.375 GM Q8H per EXTENDED INFUSION IVPB SCH ×6 (06:08→21:45)
[2019-02-25 06:23] LABS: Hematocrit 31 % (42-52); Hemoglobin 10.4 g/dL (14.0-18.0); Mean Corpuscular HGB Conc 33 g/dL (31-36); Mean Corpuscular Hemoglobin 31 pg (27-31); Mean Corpuscular Volume 94 fL (80-94); Mean Platelet Volume 7.6 fL (7.4-10.4); Platelet Count 274 10^3/uL (150-450); Red Blood Count 3.34 10^6 /uL (4.18-5.48); Red Cell Distribution Width 13 % (10-15); White Blood Count 9.9 10^3/uL (3.5-10.8)
[2019-02-25 06:40] LABS: BUN/Creatinine Ratio 19.2 (8-20); Calcium 8.1 mg/dL (8.6-10.3); EGFR Non-African American 103.3 (>60)
[2019-02-25 06:49] LABS: ABS Basophils 0.1 10^3/ul (0-0.2); ABS Eosinophils 0.2 10^3/ul (0-0.6); ABS Monocytes 0.6 10^3/ul (0-0.8); Eosinophil % 1.6 %; Lymphocyte % 20.6 %; Nucleated Red Blood Cells % 0.1
[2019-02-25] MEDS ORDERED: Perflutren Lipid Microsphere* 3 ML VIAL ONE (09:53)
--- NOTE | 2019-02-25 11:16 | PN ---
Subjective Date of Service: 02/25/19 Interval History: Reports feeling significantly better.Denies any complaints.Getting TTE Objective Active Medications: Acetaminophen (Tylenol Tab*) 650 mg PO Q4H PRN PRN Reason: PAIN - MILD Dextrose (D50w Syringe 50 Ml*) 25 gm IV PUSH .FOR FS < 60 - SS PRN PRN Reason: FS < 60 Piperacillin Sod/Tazobactam (Sod 3.375 gm/ Sodium Chloride) 100 mls @ 25 mls/ hr IVPB Q8H [facility] Last Admin: 02/25/19 06:08 Dose: 25 mls/hr Lactated Ringer's (Lactated Ringers 1000 Ml Bag*) 1,000 mls @ 100 mls/hr IV PER RATE [facility] Last Admin: 02/25/19 01:31 Dose: 100 mls/hr Ibuprofen (Advil Tab*) 200 mg PO Q6H PRN PRN Reason: PAIN - MODERATE Iodixanol (Visipaque* 320 (Contrast)) 141 ml IV ONCE [facility] Stop: 02/25/19 12:05 Last Admin: 02/23/19 12:36 Dose: 141 ml Midodrine (Midodrine) 10 mg PO Q6HR [facility]; Protocol Last Admin: 02/25/19 06:07 Dose: 10 mg Morphine Sulfate (Morphine Inj (Syringe))*) 2 mg IV Q2H PRN PRN Reason: PAIN - SEVERE Last Admin: 02/23/19 06:10 Dose: 2 mg Pharmacy Consult (Zosyn Per Pharmacy*) 1 note FOLLOW UP . PRN PRN Reason: PER PROTOCOL Phenyleph/Shark Oil/Min Oil/Petrol (Preparation H*) 1 applic ND TID PRN PRN Reason: PAIN - MILD Witch Judith (Tucks*) 1 pad TOPICAL DAILY PRN PRN Reason: HEAVY BLEEDING Vital Signs - 8 hr 02/25/19 02/25/19 07:30 08:00 Temperature 97.3 F Pulse Rate 61 Respiratory 18 20 Rate Blood Pressure 142/80 (mmHg) O2 Sat by Pulse 96 Oximetry Oxygen Devices in Use Now: None Eyes: No Scleral Icterus Ears/Nose/Mouth/Throat: NL Teeth, Lips, Gums Neck: NL Appearance and Movements; NL JVP Respiratory: Symmetrical Chest Expansion and Respiratory Effort, Clear to Auscultation Cardiovascular: NL Sounds; No Murmurs; No JVD Abdominal: NL Sounds; No Tenderness; No Distention Extremities: No Edema Neurological: Alert and Oriented x 3 Result Diagrams: 02/25/19 06:05 02/25/19 06:05 Additional Lab and Data: Lab Results 02/22/19 Range/Units 14:30 WBC 34.6 H (3.5-10.8) 10^3/uL RBC 4.27 (4.18-5.48) 10^6 /uL Hgb 13.1 L (14.0-18.0) g/dL Hct 39 L (42-52) % MCV 92 (80-94) fL MCH 31 (27-31) pg MCHC 33 (31-36) g/dL RDW 13 (10-15) % Plt Count 311 (150-450) 10^3/uL MPV 8.0 (7.4-10.4) fL Neut % (Auto) Pending Lymph % (Auto) Pending [place] % (Auto) Pending Eos % (Auto) Pending Baso % (Auto) Pending Absolute Neuts (auto) Pending Absolute Lymphs (auto) Pending Absolute Monos (auto) Pending Absolute Eos (auto) Pending Absolute Basos (auto) Pending Absolute Nucleated RBC Pending Nucleated RBC % Pending Microbiology and Other Data: Microbiology 02/22/19 16:03 Aerobic Blood Culture - Preliminary Blood Venous No Growth Day 2 Anaerobic Blood Culture - Preliminary Streptococcus Constellatus Blood MRSA/MSSA (PCR) - Final Mrsa Negative S.aureus Negative 02/22/19 21:36 Urine Culture - Final Urine No Growth (<1,000 CFU/mL) 02/22/19 16:03 Aerobic Blood Culture - Preliminary Blood Venous No Growth Day 1 Anaerobic Blood Culture - Preliminary Bacteroides Fragilis 02/22/19 18:00 Nasal Screen MRSA (PCR) - Final Nasal Mrsa Not Detected Assess/Plan/Problems-Billing Assessment: - Patient Problems (1) Sepsis Current Visit: Yes Status: Acute Comment: Blood cx positive for Strep Constellatus and Bacteroides Fragilis Unclear source No abscess, no IV drug use.Does have tracheal deviation from large thyroid mass. Will start with TTE to r/o Endocarditis and consider CATRACHITO with low threshold and endocarditis is very possible Will repeat blood culture Odd bugs growing Both vials positive with sig leukocytosis and features of sepsis Responding to Zosyn with improvement in leukocytosis and clinical presentation.So will continue and repeat cultures and await final results and sensitivity and adjust antibiotics Requested consult with ID tomorrow for input (2) Thyroid mass Current Visit: Yes Status: Acute Comment: Large mass Benign versus malignant May need FNA/Biopsy versus surgery Discussed with ENT,Dr Munson. He reviewed the CT scans and does not think the tracheal deviation is significant and thinks the mass is likely not contributing to his clinical picture and may have been there a while. He rec outpatient followup with ENT for an FNA.Will set up the patient as an outpatient when he is stabilized with ENT. Appreciate Dr Mead input No need for oxygen currently in day time No stridor Will eval closely while asleep (3) Leukocytosis Current Visit: Yes Status: Acute Code(s): D72.829 - ELEVATED WHITE BLOOD CELL COUNT, UNSPECIFIED SNOMED Code(s): 248905075 Comment: Improved with Antibiotics Reactive (4) Sleep apnea Current Visit: Yes Status: Acute Code(s): G47.30 - SLEEP APNEA, UNSPECIFIED SNOMED Code(s): 97068423 Comment: Continue CPAP
--- NOTE | 2019-02-25 11:21 | ECHO ---
*[facility]* [place] [address] Fax #: [phone] Transthoracic Echocardiogram Patient: Matty Dhaliwal : 1965 Study Date: 02/25/2019 Age: 53 Gender: M HR: 54 bpm Height: 65 in /165.1 cm BSA: 2.65 m^2 Weight: 314.3 lb /142.9 kg BMI: 52.4 kg/m^2 *Dairy Tester: Sahra Noe [facility] *Referring Physician: * Dayanna Mccullough *Reading Physician: * Josh Tate MD Indications: Chest Pain, unspecified. History: Risk factors: Hypertension. Diabetes mellitus. Obese. Conclusions Summary: - Left ventricle: Systolic function is normal. The estimated ejection fraction is 55-60%. Wall motion is normal; there are no regional wall motion abnormalities. - Right ventricle: Systolic function is normal. - Mitral valve: There is trace regurgitation. - Aortic valve: There is no evidence of stenosis. - Tricuspid valve: There is trace regurgitation. - Pulmonary arteries: Systolic pressure can not be accurately estimated. - Study data: No prior study is available for comparison. Study data: Transthoracic echocardiogram. Procedure: Transthoracic echocardiography was performed. Image quality was fair. Intravenous Definity , 3 mlswas administered. Complete 2D, spectral Doppler, and color flow Doppler. Location: Bedside. Patient status: Inpatient. Patient room number: 411. No prior study is available for comparison. Rhythm: Bradycardia. Findings Left ventricle: The cavity size is normal. Wall thickness is mildly increased. Systolic function is normal. The estimated ejection fraction is 55-60%. Wall motion is normal; there are no regional wall motion abnormalities. There is no consistent Doppler evidence of clinically significant diastolic dysfunction. Right ventricle: The cavity size is normal. Systolic function is normal. Left atrium: The atrium is moderately dilated. Right atrium: The atrium is moderately dilated. Mitral valve: The leaflets are normal thickness. There is no evidence of stenosis. There is trace regurgitation. Aortic valve: The valve is trileaflet. The leaflets are normal thickness. There is no evidence of stenosis. There is no significant regurgitation. Tricuspid valve: The leaflets are normal thickness. There is no evidence of stenosis. There is trace regurgitation. Pulmonic valve: The leaflets are normal thickness. There is no evidence of stenosis. There is trace regurgitation. Aorta: The aortic root appears normal. The aortic arch appears normal. Pericardium: There is no significant pericardial effusion. Pulmonary arteries: The main pulmonary artery is normal-sized. Systolic pressure can not be accurately estimated. Systemic veins: Inferior vena cava: The vessel is dilated. There is (>= 50%) respiratory change in the IVC dimension. Measurements Left ventricle Value Ref Aortic valve continued Value Ref REBEKAH, LAX 5.3 cm 4.2 - 5.8 Victor Manuel diam/bsa, ED 0.9 cm/m^2 ---- ESD, LAX 3.6 cm 2.5 - 4.0 Peak v, S 1.4 m/sec ---- FS, LAX 32 % 25 - 43 VTI, S 28.1 cm ---- PW, ED, LAX 0.9 cm 0.6 - 1.0 Mean grad, S 3.4 mm Hg ---- E', lat victor manuel, TDI 10.0 cm/sec >=10.0 Peak grad, S 8.0 mm Hg ---- E/e', lat victor manuel, 8 TDI Mitral valve Value Ref E', med victor manuel, TDI 12.0 cm/sec >=7.0 Peak E 0.81 m/sec ---- E/e', med victor manuel, 7 Peak A 0.61 m/sec -- -- TDI Decel time 197 ms ---- E', avg, TDI 11.0 cm/sec Peak grad, D 2.7 mm Hg -- -- E/e', avg, TDI 7 <=14 Peak E/A ratio 1.34 ---- LVOT Value Ref Pulmonic valve Value Ref Peak lorin, S 1.11 m/sec Peak v, S 0.9 m/sec ---- VTI, S 25.0 cm Peak grad, S 3.0 mm Hg ---- Peak grad, S 5 mm Hg Mean grad, S 3 mm Hg Aortic root Value Ref Root diam 3.3 cm <4.6 Ventricular septum Value Ref IVS, ED (H) 1.3 cm 0.6 - 1.0 Ascending aorta Value Ref AAo AP diam, S 3.3 cm ---- Right ventricle Value Ref REBEKAH, LAX 4.0 cm Aortic arch Value Ref REBEKAH major ax, A4C (L) 4.4 cm 5.9 - 8.3 Arch diam 4.1 cm ---- Left atrium Value Ref Decending aorta Value Ref AP dim, ES (H) 4.30 cm 3.00 - González peak lorin 0.94 m/sec ---- 4.00 ML dim, A4C 5.8 cm Inferior vena cava Value Ref SI dim, A4C 6.9 cm Diam 2.6 cm ---- Vol/bsa, ES, 2-p (H) 48 ml/m^2 16 - 34 Pulmonary veins Value Ref Right atrium Value Ref Peak v, S 0.52 m/sec ---- SI dim, ES (H) 6.2 cm 3.4 - 5.3 Peak v, D 0.29 m/sec ---- ML dim, ES, A4C 3.9 cm 2.6 - 4.4 Peak S/D ratio 1.82 ---- Estimated RAP 8 mm Hg A rev duration 138 ms ---- Aortic valve Value Ref Victor Maneul diam, ED 2.5 cm Legend: (L) and (H) nito values outside specified reference range. Prepared and electronically signed by Josh Tate MD 02/25/2019 11:21
--- NOTE | 2019-02-25 17:17 | CONS ---
CONSULTATION REPORT: DATE OF CONSULT: 02/25/19 PRIMARY CARE PROVIDER: CHRISTA Hernandez. PROVIDER REQUESTING CONSULTATION: Dr. Maddison Fuentes. CONSULTING SERVICE: Infectious Disease. PROVIDER: Edith Roldan NP. ATTENDING PROVIDER: Dr. Alfred Alarcon * (dictated by EDITH ROLDAN NP). REASON FOR CONSULT: Strep constellatus and bacteroides bacteremia. IMPRESSION: 1. Streptococcus constellatus and Bacteroides fragilis bacteremia. The patient is noted to have 1 out of 4 bottles positive with bacteroides and 2 out of /4 bottles positive for Streptococcus constellatus. Urine culture with no growth. I suspect that bacteroides may be a contaminant. Strep constellatus is often caused by an upper gastrointestinal source. The patient denies any abdominal pain. He had an abdomen and pelvis CT showing a left kidney cyst and fullness of the rectum, no other significant findings. The patient is afebrile and has no leukocytosis. 2. Left thyroid mass. This will likely need to have an FNA. 3. Diabetes mellitus type 2. 4. Obesity. BMI 54.1. RECOMMENDATIONS/PLAN: Recommend continuing Zosyn for now. We will start with a transthoracic echocardiogram. If this is negative, we should strongly consider getting a transesophageal echocardiogram as Strep constellatus can cause endocarditis. Further recommendations will be based on further workup and clinical status. HISTORY OF PRESENT ILLNESS: Mr. Dhaliwal is a 53-year-old male with past medical history significant for hypertension, hyperlipidemia, diabetes mellitus type 2, and morbid obesity, who presented to the emergency room with complaints of chest pain, shortness of breath worse with exertion, generalized body aches, headache, diaphoresis, weight loss, and neck pain. He states that for 2 to 3 days prior to his presentation he had been having diaphoresis with the body aches. Nobody else around him with similar symptoms. Additionally, he was feeling lightheaded and confused. Due to his symptoms, he presented to the emergency room for further evaluation. While in the emergency room, he was noted to be tachycardic and tachypneic. He was diaphoretic. He had a CT of his neck and chest showing an enlarged thyroid gland with a large mass arising from the left thyroid lobe causing compression and narrowing of the trachea. He was noted to be hypotensive in the emergency room and received IV boluses and was started on broad-spectrum antibiotics and admitted to the hospital. During his hospitalization, he had blood cultures returned with 2 out of 4 bottles positive for Strep constellatus and bacteroides in 1 out of 4 bottles. Sepsis on admission has resolved. He denies IV drug use. He is noted to have tracheal deviation on imaging due to a large thyroid mass. His initial significant leukocytosis with a white blood cell count of 34,000 has resolved. He denies fevers or chills. Currently, symptoms from admission have resolved. He reports continued shortness of breath. He reports development of an occasional cough this morning with some minimal mucus production. Denies any urinary symptoms, nausea, vomiting, diarrhea, recent travel. He states the achiness, headache, and neck pain that he had had on admission and yesterday has resolved. He has not noticed any swelling or discomfort in his throat. The patient has been on Zosyn. Urine culture with no growth. Repeat blood cultures have been drawn today and are pending. The patient denies any difficulty swallowing. The patient reports having some issue with some hemorrhoids at home. He states that this is improving and resolving. PAST MEDICAL HISTORY: 1. Hypertension. 2. Hyperlipidemia. 3. Diabetes mellitus. 4. Morbid obesity, BMI 54.1. PAST SURGICAL HISTORY: He reports having a urogenital surgery as a child due to urinary incontinence. MEDICATIONS: Home medications: 1. Simvastatin 40 mg by mouth daily. 2. Glipizide 10 mg by mouth twice daily. 3. Aspirin 81 mg by mouth daily. 4. Metformin 1000 mg by mouth twice daily. 5. Lisinopril 5 mg by mouth daily. Hospital medications: 1. Acetaminophen 650 mg by mouth every 4 hours as needed for pain. 2. Dextrose 25 g IV push for glucose less than 60 as needed. 3. Lactated Ringer's 100 mL an hour intravenously. 4. Morphine sulfate 2 mg IV every 2 hours as needed for pain. 5. Preparation H 1 application per rectum 3 times daily as needed. 6. Zosyn 3.375 g IV every 8 hours. 7. Witch carrie 1 pad topical daily as needed for hemorrhoids. ALLERGIES: No known drug allergies. FAMILY HISTORY: Denies family history of recurrent or resistant infections. No family history of coronary artery disease. Maternal aunts and uncles with a history of diabetes. Reports family history of thyroid disease. Denies family history of cancer. SOCIAL HISTORY: He occasionally drinks alcohol. Denies tobacco or recreational drug use. REVIEW OF SYSTEMS: I performed a 10-point review of systems. All the pertinent positives and negatives are mentioned in the history of present illness. The remaining review of systems are negative. PHYSICAL EXAM: Vital Signs: Temperature 98, heart rate 60, respiratory rate 18 , O2 sat 97% on room air, blood pressure 164/88. General Appearance: He is alert, appears to be in no acute distress, sitting up in a chair. Head: Normocephalic, atraumatic. EENT: Extraocular movements are intact. No subconjunctival hemorrhage. Moist mucous membranes. Neck is supple. There is no lymphadenopathy noted. There is a palpable left thyroid mass. Neurological : Alert and oriented x4. Cranial nerves II through XII are grossly intact. He moves all extremities. Cardiovascular: Regular rate and rhythm. S1 and S2 present. No murmurs, rubs, or gallops heard. Respiratory: No accessory muscle use. The lungs are clear to auscultation bilaterally, but diminished. Abdomen: Bowel sounds present. Abdomen is obese, soft, nontender, nondistended. Extremities: No lower extremity edema. DP and PT pulses are 2+ and symmetric. Musculoskeletal: No clubbing or cyanosis noted. The patient exhibits good strength in all extremities. Psychological: Calm and cooperative. Skin: No rashes or abnormalities seen. DIAGNOSTIC STUDIES/LAB DATA: Sodium 140, potassium 4.0, chloride 109, CO2 of 24 , BUN 15, creatinine 0.78, glucose 118. White blood cell count 9.9, hemoglobin 10.4, hematocrit 31, and platelet count 274. Please see impression and recommendations outlined above, recommendations have been discussed with Dr. Fuentes. Thank you for asking us to see Mr. Dhaliwal in consultation. The case has been discussed with my attending Dr. Alfred Alarcon, who agrees with the plan of care. Reviewed by RAF FELTON 02/27/19 0820 [id number]/[facility] #: [id number] LIONEL
[2019-02-25] MEDS ORDERED: Dextrose 50% VIAL 50 ml IV PUSH PRN (17:54)
[2019-02-25] MEDS ORDERED: hydrALAZINE IV* 20 MG/ML VIAL IV SLOW PU PRN (18:38)
[2019-02-25] MEDS: Lisinopril TAB* 5 MG PO SCH (20:14)
[2019-02-25] MEDS: Morphine INJ* 2 MG/ML 1 ML SYRINGE (TWO MG - NEW SYRINGE VERSION) IV PRN (21:18)
[2019-02-26] MEDS: ZOSYN 3.375 GM Q8H per EXTENDED INFUSION IVPB SCH ×6 (04:38→23:44)
[2019-02-26] MEDS: Lisinopril TAB* 5 MG PO SCH (08:29)
[2019-02-26 08:32] LABS: Hematocrit 32 % (42-52); Hemoglobin 10.7 g/dL (14.0-18.0); Mean Corpuscular HGB Conc 33 g/dL (31-36); Mean Corpuscular Hemoglobin 31 pg (27-31); Mean Corpuscular Volume 93 fL (80-94); Platelet Count 287 10^3/uL (150-450); Red Blood Count 3.46 10^6 /uL (4.18-5.48); Red Cell Distribution Width 13 % (10-15); White Blood Count 7.8 10^3/uL (3.5-10.8)
[2019-02-26 08:45] LABS: BUN/Creatinine Ratio 16.9 (8-20); Calcium 8.3 mg/dL (8.6-10.3); EGFR African American 126.9 (>60); EGFR Non-African American 104.9 (>60); Potassium 4.2 mmol/L (3.5-5.0)
[2019-02-26 09:02] LABS: Polychromasia 1+
[2019-02-26 09:17] LABS: ABS Basophils 0.1 10^3/ul (0-0.2); ABS Eosinophils 0.2 10^3/ul (0-0.6); ABS Lymphocytes 1.8 10^3/ul (1.0-4.8); ABS Monocytes 0.1 10^3/ul (0-0.8); ABS Neutrophils 5.7 10^3/ul (1.5-7.7); Eosinophil % 2.7 %; Lymphocyte % 22.9 %
[2019-02-26] MEDS ORDERED: Cyanocobalamin INJ * 1,000 MCG/ML VIAL 1 ML VIAL IM ONE (09:18)
--- NOTE | 2019-02-26 10:35 | PN ---
Progress Note - Progress Note Date of Service: 02/26/19 SOAP: Subjective: CC: Bacteremia HPI: Mr. Dhaliwal is a 53 yo male with PMH significant for HTN, HLD, DM2, morbid obesity; who presented to the hospital with complaints of chest pain, SOB, and general body aches. Denies fever, chills, nausea, vomiting, diarrhea, or urinary symptoms. He continues to have headache in the frontal region and in his upper neck. Objective: Vital Signs - 8 hr 02/26/19 02/26/19 02/26/19 02:57 07:15 08:00 Temperature 97.4 F 97.1 F Pulse Rate 59 52 Respiratory 20 18 18 Rate Blood Pressure 129/82 159/85 (mmHg) O2 Sat by Pulse 98 97 Oximetry Physical Exam: General: NAD, sitting up in a chair Neurological: Alert and Oriented x4 HEENT: Moist MM, no thrush Cardiovascular: Heart rate regular, no murmur Respiratory: Lung sounds clear Abdominal: Bowel sounds present; ABD soft, non tender and obese MSK: No tenderness with palpation of the neck, back or spine Skin: No rash Laboratory Results - last 24 hr 02/26/19 02/26/19 08:04 08:04 WBC 7.8 RBC 3.46 L Hgb 10.7 L Hct 32 L MCV 93 MCH 31 MCHC 33 RDW 13 Plt Count 287 MPV 8.0 Neut % (Auto) 72.3 Lymph % (Auto) 22.9 Summers % (Auto) 0.8 Eos % (Auto) 2.7 Baso % (Auto) 1.3 Absolute Neuts (auto) 5.7 Absolute Lymphs (auto) 1.8 Absolute Monos (auto) 0.1 Absolute Eos (auto) 0.2 Absolute Basos (auto) 0.1 Absolute Nucleated RBC 0.0 Immature Gran % 3.0 Neutrophils % 72.0 Band Neutrophils % 2.0 Lymphocytes % 20.0 Monocytes % 1.0 Eosinophils % 4.0 Metamyelocytes % 1.0 Nucleated RBC % 0.0 Normal RBC Morphology Not Reportable Polychromasia 1+ Sodium 140 Potassium 4.2 Chloride 109 Carbon Dioxide 24 Anion Gap 7 BUN 13 Creatinine 0.77 Est GFR ( Amer) 126.9 Est GFR (Non-Af Amer) 104.9 BUN/Creatinine Ratio 16.9 Glucose 116 H POC Glucose (mg/dL) Calcium 8.3 L Microbiology 02/22/19 16:03 Aerobic Blood Culture - Preliminary Blood Venous No Growth Day 4 Anaerobic Blood Culture - Final Bacteroides Fragilis Streptococcus Constellatus 02/22/19 16:03 Aerobic Blood Culture - Preliminary Blood Venous No Growth Day 4 Anaerobic Blood Culture - Final Streptococcus Constellatus Blood MRSA/MSSA (PCR) - Final Mrsa Negative S.aureus Negative 02/22/19 21:36 Urine Culture - Final Urine No Growth (<1,000 CFU/mL) 02/22/19 18:00 Nasal Screen MRSA (PCR) - Final Nasal Mrsa Not Detected Assessment: 1. Strep constellatus bacteremia. 2/4 bottles positive on admission. Urine culture with no growth. Afebrile and no leukocytosis. TTE negative for vegetation. CATRACHITO pending for later today. Concern for possible endocarditis. 2. DM2. 3. Morbid obesity. BMI 541. Plan: Continue Zosyn for now while we await CATRACHITO. If CATRACHITO is negative will plan for 2 weeks of ABX, he will need a long course if he has endocarditis.
[2019-02-26] MEDS ORDERED: fentaNYL* 50 MCG/ML 2 ML VIAL (100 MCG VIAL) ONE (14:07)
[2019-02-26] MEDS ORDERED: Midazolam* 1 MG/ML 5 ML VIAL (5 MG) ONE (14:07)
[2019-02-26] MEDS ORDERED: Flumazenil* 0.1 MG/ML 5 ML MDV ONE (14:08)
[2019-02-26] MEDS ORDERED: Naloxone* 0.4 MG/ML 1 ML VIAL ONE (14:08)
[2019-02-26] MEDS ORDERED: Lidocaine 2% VISCOUS* 15 ML UDC ONE (14:24)
--- NOTE | 2019-02-26 15:50 | PN ---
Subjective Date of Service: 02/26/19 Interval History: Reports feeling better.Waiting for his CATRACHITO.No chills fever overnight Objective Active Medications: Acetaminophen (Tylenol Tab*) 650 mg PO Q4H PRN PRN Reason: PAIN - MILD Dextrose (Dextrose 50% Vial 50 Ml*) 50 ml IV PUSH .FOR FS < 60 - SS PRN PRN Reason: FS < 60 Hydralazine HCl (Apresoline Iv*) 5 mg IV SLOW PU Q6H PRN PRN Reason: BLOOD PRESSURE Piperacillin Sod/Tazobactam (Sod 3.375 gm/ Sodium Chloride) 100 mls @ 25 mls/ hr IVPB Q8H [facility] Last Admin: 02/26/19 04:38 Dose: 25 mls/hr Ibuprofen (Advil Tab*) 200 mg PO Q6H PRN PRN Reason: PAIN - MODERATE Last Admin: 02/25/19 20:14 Dose: 200 mg Lisinopril (Prinivil Tab*) 5 mg PO DAILY [facility] Last Admin: 02/26/19 08:29 Dose: 5 mg Morphine Sulfate (Morphine Inj (Syringe))*) 2 mg IV Q2H PRN PRN Reason: PAIN - SEVERE Last Admin: 02/25/19 21:18 Dose: 2 mg Pharmacy Consult (Zosyn Per Pharmacy*) 1 note FOLLOW UP . PRN PRN Reason: PER PROTOCOL Phenyleph/Shark Oil/Min Oil/Petrol (Preparation H*) 1 applic [place] TID PRN PRN Reason: PAIN - MILD Witch Judith (Tucks*) 1 pad TOPICAL DAILY PRN PRN Reason: HEAVY BLEEDING Vital Signs - 8 hr 02/26/19 02/26/19 02/26/19 08:00 10:40 14:14 Temperature 98.3 F Pulse Rate 66 Respiratory 18 18 19 Rate Blood Pressure 166/92 147/85 (mmHg) O2 Sat by Pulse 100 Oximetry 02/26/19 14:35 Temperature Pulse Rate 54 Respiratory Rate Blood Pressure 147/74 (mmHg) O2 Sat by Pulse 93 Oximetry Oxygen Devices in Use Now: None Eyes: No Scleral Icterus Ears/Nose/Mouth/Throat: NL Teeth, Lips, Gums Neck: NL Appearance and Movements; NL JVP Respiratory: Symmetrical Chest Expansion and Respiratory Effort Cardiovascular: NL Sounds; No Murmurs; No JVD Abdominal: NL Sounds; No Tenderness; No Distention Extremities: No Edema Neurological: Alert and Oriented x 3 Result Diagrams: 02/26/19 08:04 02/26/19 08:04 Additional Lab and Data: Lab Results 02/22/19 Range/Units 14:30 WBC 34.6 H (3.5-10.8) 10^3/uL RBC 4.27 (4.18-5.48) 10^6 /uL Hgb 13.1 L (14.0-18.0) g/dL Hct 39 L (42-52) % MCV 92 (80-94) fL MCH 31 (27-31) pg MCHC 33 (31-36) g/dL RDW 13 (10-15) % Plt Count 311 (150-450) 10^3/uL MPV 8.0 (7.4-10.4) fL Neut % (Auto) Pending Lymph % (Auto) Pending [place] % (Auto) Pending Eos % (Auto) Pending Baso % (Auto) Pending Absolute Neuts (auto) Pending Absolute Lymphs (auto) Pending Absolute Monos (auto) Pending Absolute Eos (auto) Pending Absolute Basos (auto) Pending Absolute Nucleated RBC Pending Nucleated RBC % Pending Microbiology and Other Data: Microbiology 02/22/19 16:03 Aerobic Blood Culture - Preliminary Blood Venous No Growth Day 2 Anaerobic Blood Culture - Preliminary Streptococcus Constellatus Blood MRSA/MSSA (PCR) - Final Mrsa Negative S.aureus Negative 02/22/19 21:36 Urine Culture - Final Urine No Growth (<1,000 CFU/mL) 02/22/19 16:03 Aerobic Blood Culture - Preliminary Blood Venous No Growth Day 1 Anaerobic Blood Culture - Preliminary Bacteroides Fragilis 02/22/19 18:00 Nasal Screen MRSA (PCR) - Final Nasal Mrsa Not Detected Assess/Plan/Problems-Billing Assessment: - Patient Problems (1) Sepsis Current Visit: Yes Status: Acute Comment: Blood cx positive for Strep Constellatus and Bacteroides Fragilis Unclear source No abscess, no IV drug use.Does have tracheal deviation from large thyroid mass. TTE not suggestive of endocarditis Will get CATRACHITO as Strep Constellatus can cause endocarditis.Pt scheduled to have CATRACHITO later this afternoon Repeated blood culture ( pending) Responding to Zosyn with improvement in leukocytosis and clinical presentation.So will continue and repeat cultures and await final results and sensitivity and adjust antibiotics ID consulted Further antibiotic plan per ID (2) Thyroid mass Current Visit: Yes Status: Acute Comment: Large mass Benign versus malignant May need FNA/Biopsy versus surgery Discussed with ENT,Dr Munson. He reviewed the CT scans and does not think the tracheal deviation is significant and thinks the mass is likely not contributing to his clinical picture and may have been there a while. He rec outpatient followup with ENT for an FNA.Will set up the patient as an outpatient when he is stabilized with ENT. Appreciate Dr Mead input No need for oxygen currently in day time No stridor Will eval closely while asleep (3) Leukocytosis Current Visit: Yes Status: Acute Code(s): D72.829 - ELEVATED WHITE BLOOD CELL COUNT, UNSPECIFIED SNOMED Code(s): 954883943 Comment: Improved with Antibiotics Reactive (4) Sleep apnea Current Visit: Yes Status: Acute Code(s): G47.30 - SLEEP APNEA, UNSPECIFIED SNOMED Code(s): 01132068 Comment: Continue CPAP (5) Septic shock Current Visit: Yes Status: Acute Code(s): A41.9 - SEPSIS, UNSPECIFIED ORGANISM; R65.21 - SEVERE SEPSIS WITH SEPTIC SHOCK SNOMED Code(s): 76889565 Comment: Initial BP in the 70s Was in the ICU transferred to floor Resolved Stopped Midodrine Hypertensive now Home med restarted IVF stopped
--- NOTE | 2019-02-26 16:56 | TEE ---
*[facility]* [place] [address] Fax #: [phone] Transesophageal Echocardiogram Patient: Matty Dhaliwal : 1965 Study Date: 02/26/2019 Age: 53 Gender: M HR: 72 bpm Height: 64 in /162.6 cm BSA: 2.64 m^2 Weight: 315 lb /143.2 kg BMI: 54.2 kg/m^2 *Power Operator: * Sahra Boland [facility] *Referring Physician: * Maddison Fuentes *Reading Physician: * Josh Tate MD Indications: Bacteremia. History: Risk factors: Hypertension. Diabetes mellitus. Obese. Conclusions Summary: - Left ventricle: Systolic function is normal. The estimated ejection fraction is 55-60%. Wall motion is normal; there are no regional wall motion abnormalities. - Right ventricle: Systolic function is normal. - Atrial septum: A PFO is not demonstrated by color Doppler or agitated saline contrast. Negative bubble study. - Mitral valve: There is no evidence of a vegetation. There is trace to mild regurgitation. - Aortic valve: There is no evidence of a vegetation. There is no evidence of stenosis. - Tricuspid valve: There is no evidence of a vegetation. There is no significant regurgitation. Study data: Diagnostic Transesophageal Echocardiogram Consent: The risks and benefits of the procedure, including alternatives were discussed with the patient and/or their health care customer operations representative and written informed consent was obtained. Procedure: Initial setup: The patient was brought to the laboratory in the fasting state.Intravenous access was obtained. Surface ECG leads, heart rate, heart rhythm, blood pressure measurements, pulse oximetric signals, and mainstream end-tidal CO2 tracings were monitored throughout the procedure. Sedation. Moderate sedation was administered by nursing staff. History and physical as well as labs were reviewed. An oral bite block was inserted for protection of oral dentition. The patient was placed in the left lateral decubitus position. Topical anesthesia was obtained using viscous lidocaine. A transesophageal probe was inserted by the attending substation supervisor. Transesophageal echocardiography was performed, image quality was good, and all standard views were attempted within the limitations of patient tolerance and safety. Multiple 2D, color flow Doppler and spectral Doppler images were obtained. The transesophageal probe was removed. There was no blood loss.No tubes, implants, or drains. A bubble study was performed. Location: Procedure room. Patient status: Inpatient. Patient room number: 411 02. Study completion: The patient tolerated the procedure well. There were no complications. Administered medications: Midazolam, 5mg. Fentanyl, 50mcg. Rhythm: Normal sinus rhythm. Findings Left ventricle: The cavity size is normal. Systolic function is normal. The estimated ejection fraction is 55-60%. Wall motion is normal; there are no regional wall motion abnormalities. Right ventricle: The cavity size is normal. Systolic function is normal. Left atrium: The atrium is dilated. The appendage is of normal size. There is no evidence of a thrombus in the atrial cavity or appendage. Right atrium: The atrium is dilated. The Eustachian valve appeared prominant. Atrial septum: A PFO is not demonstrated by color Doppler or agitated saline contrast. Negative bubble study. Mitral valve: The leaflets are normal thickness. There is no evidence of a vegetation. There is no evidence of stenosis. There is trace to mild regurgitation. Aortic valve: The valve is trileaflet. The leaflets are normal thickness. There is no evidence of a vegetation. There is no evidence of stenosis. There is trace regurgitation. Tricuspid valve: The leaflets are normal thickness. There is no evidence of a vegetation. There is no evidence of stenosis. There is no significant regurgitation. Pulmonic valve: The leaflets are normal thickness. There is no evidence of a vegetation. There is no evidence of stenosis. There is no significant regurgitation. Aorta: The aortic root appears normal. The ascending aorta appears normal. Pericardium: There is no significant pericardial effusion. Pulmonary arteries: The main pulmonary artery is normal-sized. Systemic veins: Not well visualized. Pulmonary veins: The flow of the pulmonary veins appears normal. Measurements Aortic valve Value Ref Aortic root Value Ref Huong diam, ED 2.5 cm ---- Root diam 3.3 cm <4.6 Mitral valve Value Ref Ascending aorta Value Ref Peak E 0.71 m/sec ---- AAo AP diam, S 3.4 cm ---- Peak A 0.52 m/sec ---- Decel time 66 ms ---- Peak grad, D 2.0 mm Hg ---- Peak E/A ratio 1.4 ---- Legend: (L) and (H) nito values outside specified reference range. Prepared and electronically signed by Josh Tate MD 02/26/2019 16:55
[2019-02-27 05:56] LABS: Hematocrit 31 % (42-52); Hemoglobin 10.5 g/dL (14.0-18.0); Mean Corpuscular HGB Conc 34 g/dL (31-36); Mean Corpuscular Hemoglobin 32 pg (27-31); Mean Corpuscular Volume 92 fL (80-94); Mean Platelet Volume 7.6 fL (7.4-10.4); Platelet Count 275 10^3/uL (150-450); Red Blood Count 3.32 10^6 /uL (4.18-5.48); Red Cell Distribution Width 13 % (10-15); White Blood Count 8.2 10^3/uL (3.5-10.8)
[2019-02-27] MEDS: ZOSYN 3.375 GM Q8H per EXTENDED INFUSION IVPB SCH ×6 (05:56→21:54)
[2019-02-27 06:12] LABS: BUN/Creatinine Ratio 16.5 (8-20); Calcium 8.2 mg/dL (8.6-10.3); EGFR African American 113.2 (>60); EGFR Non-African American 93.6 (>60)
[2019-02-27 06:31] LABS: ABS Basophils 0.1 10^3/ul (0-0.2); ABS Eosinophils 0.2 10^3/ul (0-0.6); ABS Lymphocytes 1.9 10^3/ul (1.0-4.8); ABS Monocytes 0.4 10^3/ul (0-0.8); ABS Neutrophils 5.6 10^3/ul (1.5-7.7); Eosinophil % 2.6 %; Lymphocyte % 22.9 %
[2019-02-27] MEDS: Lisinopril TAB* 5 MG PO SCH (10:31)
--- NOTE | 2019-02-27 11:05 | PN ---
Progress Note - Progress Note Date of Service: 02/27/19 SOAP: Subjective: CC: fever HPI: 53 year old man with fever and malaise found to have bacteremia. Feeling much better. Tolerated CATRACHITO well. Appetite is good. No joint or back pain, no fever, rash, or diarrhea. Had RUQ pain initially for a few days, gone now. Wasn't worse with eating. Has had it in the past off and on. Objective: Vital Signs Temp 36.7 C 02/27/19 03:58 Pulse 53 02/27/19 03:58 Resp 20 02/27/19 03:58 BP 137/62 02/27/19 03:58 Pulse Ox 92 02/27/19 03:58 Intake & Output 02/26/19 02/27/19 02/27/19 18:59 06:59 18:59 Intake Total 240 0 360 Output Total 650 1080 450 Balance -410 -1080 -90 Intake: Oral 240 0 360 Output: Urine 650 1080 450 Other: # Bowel Movements 0 # Voids 1 Gen:awake, no distress HEENT: no thrush Heart:RRR no murmur Lungs:CTA BL Abd:+BS NTND soft, no RUQ tenderness Skin: no rash MSK: no spine or joint tenderness Laboratory Results - last 24 hr 02/22/19 02/25/19 02/26/19 19:30 06:05 08:04 WBC RBC Hgb Hct MCV MCH MCHC RDW Plt Count MPV Neut % (Auto) Lymph % (Auto) Forest % (Auto) Eos % (Auto) Baso % (Auto) Absolute Neuts (auto) Absolute Lymphs (auto) Absolute Monos (auto) Absolute Eos (auto) Absolute Basos (auto) Absolute Nucleated RBC Immature Gran % Neutrophils % Band Neutrophils % Lymphocytes % Monocytes % Myelocytes % Nucleated RBC % Normal RBC Morphology Hem Pathologist Commnt Sodium Potassium Chloride Carbon Dioxide Anion Gap BUN Creatinine Est GFR ( Amer) Est GFR (Non-Af Amer) BUN/Creatinine Ratio Glucose POC Glucose (mg/dL) Calcium CMV Qnt PCR IU/mL Undetected EBV DNA (PCR) Undetected 02/26/19 02/26/19 02/26/19 11:36 17:05 22:02 WBC RBC Hgb Hct MCV MCH MCHC RDW Plt Count MPV Neut % (Auto) Lymph % (Auto) Forest % (Auto) Eos % (Auto) Baso % (Auto) Absolute Neuts (auto) Absolute Lymphs (auto) Absolute Monos (auto) Absolute Eos (auto) Absolute Basos (auto) Absolute Nucleated RBC Immature Gran % Neutrophils % Band Neutrophils % Lymphocytes % Monocytes % Myelocytes % Nucleated RBC % Normal RBC Morphology Hem Pathologist Commnt Sodium Potassium Chloride Carbon Dioxide Anion Gap BUN Creatinine Est GFR ( Amer) Est GFR (Non-Af Amer) BUN/Creatinine Ratio Glucose POC Glucose (mg/dL) 104 H 91 141 H Calcium CMV Qnt PCR IU/mL EBV DNA (PCR) 02/27/19 02/27/19 05:31 05:31 WBC 8.2 RBC 3.32 L Hgb 10.5 L Hct 31 L MCV 92 MCH 32 H MCHC 34 RDW 13 Plt Count 275 MPV 7.6 Neut % (Auto) 68.4 Lymph % (Auto) 22.9 Forest % (Auto) 5.0 Eos % (Auto) 2.6 Baso % (Auto) 1.1 Absolute Neuts (auto) 5.6 Absolute Lymphs (auto) 1.9 Absolute Monos (auto) 0.4 Absolute Eos (auto) 0.2 Absolute Basos (auto) 0.1 Absolute Nucleated RBC 0.0 Immature Gran % 4.0 Neutrophils % 61.0 Band Neutrophils % 1.0 Lymphocytes % 26.0 Monocytes % 9.0 Myelocytes % 3.0 H Nucleated RBC % 0.0 Normal RBC Morphology Normal Hem Pathologist Commnt Sodium 141 Potassium 4.0 Chloride 109 Carbon Dioxide 25 Anion Gap 7 BUN 14 Creatinine 0.85 Est GFR ( Amer) 113.2 Est GFR (Non-Af Amer) 93.6 BUN/Creatinine Ratio 16.5 Glucose 103 H POC Glucose (mg/dL) Calcium 8.2 L CMV Qnt PCR IU/mL EBV DNA (PCR) Assessment: 1. Strep and Bacteroides bacteremia, cleared; could be intra-abd source if both are real. CT AP negative. Will check GB US though was not remarkable on CT. CATRACHITO was negative. 2. Morbid obesity 3. T2DM Plan: 1. continue zosyn. GB US. If negative, can change to augmentin 500 mg po tid for 7 more days. FU with ID next week.
[2019-02-27 15:39] LABS: Albumin 2.7 g/dL (3.4-4.7); Albumin/Globulin Ratio 0.75; Gamma Globulin 1.1 g/dL (0.6-1.6); Total Protein(PEP) 6.3 g/dL (6.3 - 7.9)
--- NOTE | 2019-02-27 16:23 | PN ---
Subjective Date of Service: 02/27/19 Interval History: HOSPITALIST PROGRESS NOTE Patient seen and examined at bedside. Care reviewed and d/w Nancy Chan RN. He is in good spirits today, feels improved. Was able to work with PT. Family History: Unchanged from Admission Social History: Unchanged from Admission Past Medical History: Unchanged from Admission Objective Active Medications: Acetaminophen (Tylenol Tab*) 650 mg PO Q4H PRN PRN Reason: PAIN - MILD Last Admin: 02/26/19 18:02 Dose: 650 mg Dextrose (Dextrose 50% Vial 50 Ml*) 50 ml IV PUSH .FOR FS < 60 - SS PRN PRN Reason: FS < 60 Hydralazine HCl (Apresoline Iv*) 5 mg IV SLOW PU Q6H PRN PRN Reason: BLOOD PRESSURE Piperacillin Sod/Tazobactam (Sod 3.375 gm/ Sodium Chloride) 100 mls @ 25 mls/ hr IVPB Q8H [facility] Last Admin: 02/27/19 15:24 Dose: 25 mls/hr Ibuprofen (Advil Tab*) 200 mg PO Q6H PRN PRN Reason: PAIN - MODERATE Last Admin: 02/25/19 20:14 Dose: 200 mg Lisinopril (Prinivil Tab*) 5 mg PO DAILY [facility] Last Admin: 02/27/19 10:31 Dose: 5 mg Morphine Sulfate (Morphine Inj (Syringe))*) 2 mg IV Q2H PRN PRN Reason: PAIN - SEVERE Last Admin: 02/25/19 21:18 Dose: 2 mg Pharmacy Consult (Zosyn Per Pharmacy*) 1 note FOLLOW UP . PRN PRN Reason: PER PROTOCOL Phenyleph/Shark Oil/Min Oil/Petrol (Preparation H*) 1 applic SD TID PRN PRN Reason: PAIN - MILD Witch Judith (Tucks*) 1 pad TOPICAL DAILY PRN PRN Reason: HEAVY BLEEDING Vital Signs - 8 hr 02/27/19 02/27/19 14:47 14:53 Temperature 98.4 F Pulse Rate 72 Respiratory 18 Rate Blood Pressure 165/78 155/72 (mmHg) O2 Sat by Pulse 95 Oximetry Oxygen Devices in Use Now: None Appearance: Middle aged morbid obese gentleman sitting up in a chair in NAD. Eyes: No Scleral Icterus Ears/Nose/Mouth/Throat: Mucous Membranes Moist Neck: Trachea Midline Respiratory: Symmetrical Chest Expansion and Respiratory Effort, Clear to Auscultation Cardiovascular: RRR - Normal S1 and S2 Abdominal: NL Sounds; No Tenderness; No Distention - Morbid obese Neurological: Alert and Oriented x 3, NL Muscle Strength and Tone Result Diagrams: 02/27/19 05:31 02/27/19 05:31 Microbiology and Other Data: Microbiology 02/22/19 16:03 Aerobic Blood Culture - Preliminary Blood Venous No Growth Day 2 Anaerobic Blood Culture - Preliminary Streptococcus Constellatus Blood MRSA/MSSA (PCR) - Final Mrsa Negative S.aureus Negative 02/22/19 21:36 Urine Culture - Final Urine No Growth (<1,000 CFU/mL) 02/22/19 16:03 Aerobic Blood Culture - Preliminary Blood Venous No Growth Day 1 Anaerobic Blood Culture - Preliminary Bacteroides Fragilis 02/22/19 18:00 Nasal Screen MRSA (PCR) - Final Nasal Mrsa Not Detected Assess/Plan/Problems-Billing Assessment: Mr Dhaliwal is a 53yo M with PMH of morbid obesity with BMI 54, HTN, HLD, DM, who presented to ED with c/o malaise, found to have strep septicemia. - Patient Problems (1) Sepsis Comment: - Blood cx positive for Strep Constellatus and Bacteroides Fragilis, but unclear source - CATRACHITO negative for endocarditis. - Continue Zosyn. - Check abdome US to r/o GB as source. (2) Septic shock Comment: - Initial BP in the 70s in the ICU, required Midodrine, now stopped. (3) Thyroid mass Comment: - Dr Fuentes discussed with ENT (Dr Munson). He reviewed the CT scans and does not think the tracheal deviation is significant and thinks the mass is likely not contributing to his clinical picture and may have been there a while. He recommended outpatient follow up with ENT for FNA. (4) Sleep apnea Comment: - Continue CPAP (5) DVT prophylaxis Comment: - SQ heparin. (6) Full code status
[2019-02-27] MEDS: Heparin VIAL(*) 5000 UNITS/ML VIAL (FIVE THOUSAND) SUBCUT SCH (21:54)
[2019-02-28 05:37] LABS: ABS Basophils 0.1 10^3/ul (0-0.2); ABS Eosinophils 0.2 10^3/ul (0-0.6); ABS Lymphocytes 1.9 10^3/ul (1.0-4.8); ABS Monocytes 0.7 10^3/ul (0-0.8); ABS Neutrophils 6.4 10^3/ul (1.5-7.7); Eosinophil % 2.4 %; Hematocrit 31 % (42-52); Hemoglobin 10.5 g/dL (14.0-18.0); Lymphocyte % 20.7 %; Mean Corpuscular HGB Conc 34 g/dL (31-36); Mean Corpuscular Hemoglobin 31 pg (27-31); Mean Corpuscular Volume 93 fL (80-94); Mean Platelet Volume 7.4 fL (7.4-10.4); Nucleated Red Blood Cells % 0.1; Platelet Count 299 10^3/uL (150-450); Red Blood Count 3.35 10^6 /uL (4.18-5.48); Red Cell Distribution Width 13 % (10-15); White Blood Count 9.3 10^3/uL (3.5-10.8)
[2019-02-28] MEDS: ZOSYN 3.375 GM Q8H per EXTENDED INFUSION IVPB SCH ×2 (05:49)
[2019-02-28 05:54] LABS: Calcium 8.3 mg/dL (8.6-10.3); EGFR African American 121.4 (>60); EGFR Non-African American 100.4 (>60)
[2019-02-28] MEDS: Lisinopril TAB* 5 MG PO SCH (08:21)
[2019-02-28] MEDS: Heparin VIAL(*) 5000 UNITS/ML VIAL (FIVE THOUSAND) SUBCUT SCH (08:21)
[2019-02-28 08:31] VITALS: BP 147/79
--- NOTE | 2019-02-28 09:25 | PN ---
Progress Note - Progress Note Date of Service: 02/28/19 SOAP: Subjective: CC: fever HPI: 53 year old man with fever and malaise found to have bacteremia. Feels well, RUQ pain resolved. Appetite is good. No joint or back pain, no fever, rash, or diarrhea. Had RUQ pain initially for a few days, gone now. Wasn't worse with eating. Has had it in the past off and on. Objective: Vital Signs Temp 36.7 C 02/27/19 03:58 Pulse 53 02/27/19 03:58 Resp 20 02/27/19 03:58 BP 137/62 02/27/19 03:58 Pulse Ox 92 02/27/19 03:58 Intake & Output 02/26/19 02/27/19 02/27/19 18:59 06:59 18:59 Intake Total 240 0 360 Output Total 650 1080 450 Balance -410 -1080 -90 Intake: Oral 240 0 360 Output: Urine 650 1080 450 Other: # Bowel Movements 0 # Voids 1 Gen:awake, no distress HEENT: no thrush Heart:RRR no murmur Lungs:CTA BL Abd:+BS NTND soft, no RUQ tenderness Skin: no rash MSK: no spine or joint tenderness Laboratory Results - last 24 hr 02/22/19 02/25/19 02/26/19 19:30 06:05 08:04 WBC RBC Hgb Hct MCV MCH MCHC RDW Plt Count MPV Neut % (Auto) Lymph % (Auto) Bath % (Auto) Eos % (Auto) Baso % (Auto) Absolute Neuts (auto) Absolute Lymphs (auto) Absolute Monos (auto) Absolute Eos (auto) Absolute Basos (auto) Absolute Nucleated RBC Immature Gran % Neutrophils % Band Neutrophils % Lymphocytes % Monocytes % Myelocytes % Nucleated RBC % Normal RBC Morphology Hem Pathologist Commnt Sodium Potassium Chloride Carbon Dioxide Anion Gap BUN Creatinine Est GFR ( Amer) Est GFR (Non-Af Amer) BUN/Creatinine Ratio Glucose POC Glucose (mg/dL) Calcium CMV Qnt PCR IU/mL Undetected EBV DNA (PCR) Undetected 02/26/19 02/26/19 02/26/19 11:36 17:05 22:02 WBC RBC Hgb Hct MCV MCH MCHC RDW Plt Count MPV Neut % (Auto) Lymph % (Auto) Bath % (Auto) Eos % (Auto) Baso % (Auto) Absolute Neuts (auto) Absolute Lymphs (auto) Absolute Monos (auto) Absolute Eos (auto) Absolute Basos (auto) Absolute Nucleated RBC Immature Gran % Neutrophils % Band Neutrophils % Lymphocytes % Monocytes % Myelocytes % Nucleated RBC % Normal RBC Morphology Hem Pathologist Commnt Sodium Potassium Chloride Carbon Dioxide Anion Gap BUN Creatinine Est GFR ( Amer) Est GFR (Non-Af Amer) BUN/Creatinine Ratio Glucose POC Glucose (mg/dL) 104 H 91 141 H Calcium CMV Qnt PCR IU/mL EBV DNA (PCR) 02/27/19 02/27/19 05:31 05:31 WBC 8.2 RBC 3.32 L Hgb 10.5 L Hct 31 L MCV 92 MCH 32 H MCHC 34 RDW 13 Plt Count 275 MPV 7.6 Neut % (Auto) 68.4 Lymph % (Auto) 22.9 Bath % (Auto) 5.0 Eos % (Auto) 2.6 Baso % (Auto) 1.1 Absolute Neuts (auto) 5.6 Absolute Lymphs (auto) 1.9 Absolute Monos (auto) 0.4 Absolute Eos (auto) 0.2 Absolute Basos (auto) 0.1 Absolute Nucleated RBC 0.0 Immature Gran % 4.0 Neutrophils % 61.0 Band Neutrophils % 1.0 Lymphocytes % 26.0 Monocytes % 9.0 Myelocytes % 3.0 H Nucleated RBC % 0.0 Normal RBC Morphology Normal Hem Pathologist Commnt Sodium 141 Potassium 4.0 Chloride 109 Carbon Dioxide 25 Anion Gap 7 BUN 14 Creatinine 0.85 Est GFR ( Amer) 113.2 Est GFR (Non-Af Amer) 93.6 BUN/Creatinine Ratio 16.5 Glucose 103 H POC Glucose (mg/dL) Calcium 8.2 L CMV Qnt PCR IU/mL EBV DNA (PCR) Assessment: 1. Strep and Bacteroides bacteremia, cleared; could be intra-abd source, GB US showed cholelithiasis and distend GB without wall thickening or dilated ducts and asymptomatic now. CT AP negative. CATRACHITO was negative. 2. Morbid obesity 3. T2DM Plan: 1. change zosyn to augmenting 500 mg po three time daily for 7 more days. FU with ID next week. Outpatient surgical evaluation for GB abnormality.
--- NOTE | 2019-03-01 00:07 | DS ---
CC: CHRISTA Hernandez; Dr. Alarcon; Dr. Mead; Dr. Munson * DISCHARGE SUMMARY: DATE OF ADMISSION: 02/22/19 DATE OF DISCHARGE: 02/28/19 PRIMARY CARE PROVIDER: CHRISTA Hernandez CONSULTING INFECTIOUS DISEASE SPECIALIST: Dr. Alarcon. TUBE FITTER: Dr. Mead. ENT: Dr. Munson. DISCHARGE DIAGNOSES: 1. Streptococcus and bacteroides septicemia with septic shock. 2. Thyroid mass. 3. Troponin elevation secondary to demand ischemia. SECONDARY DIAGNOSES: 1. Morbid obesity with a BMI of 54. 2. Hypertension. 3. Hyperlipidemia. 4. Type 2 diabetes. 5. Obstructive sleep apnea, on CPAP. MEDICATION LIST: 1. Aspirin 81 mg p.o. daily. 2. Glipizide 10 mg p.o. b.i.d. 3. Lisinopril 5 mg p.o. daily. 4. Metformin 1000 mg p.o. b.i.d. 5. Simvastatin 40 mg p.o. daily. New medications: 1. Acetaminophen 650 mg p.o. q.4 hours p.r.n. pain or fever. 2. Augmentin 500 mg p.o. t.i.d. HOSPITAL COURSE: Mr. Dhaliwal is a 53-year-old male with a past medical history as stated above that presented to the emergency room with complaints of chest pain, dyspnea, body aches, malaise, diaphoresis for 2 days prior to admission. In the emergency room, he was found to be septic with tachycardia, tachypnea, and leukocytosis. His initial blood pressure was 107/38, but while in the ED, his blood pressure drifted down to the 70s, and he was seen by a critical care attending for admission. He was admitted to the intensive care unit under the impression of septic shock, but the source was not clear on admission. His workup in the emergency room included a chest CT that showed an enlarged thyroid gland with a large mass arising from the left thyroid lobe causing compression and narrowing of the trachea with hepatic steatosis and splenomegaly. CT of the neck showed thyromegaly greater on the left than on the right with mass effect upon the proximal trachea and a CT of the brain that showed no acute intracranial findings. The patient was started on antibiotics empirically and he received IV fluids and midodrine with improvement of his vital signs. The patient's initial blood cultures grew Streptococcus constellatus and Bacteroides fragilis, but the source of infection was unclear. CT of the abdomen and pelvis showed a cortical cyst in the left kidney. No other masses or fluid collection. No adrenal masses. Minimal presacral edema of uncertain clinical significance with fullness of the rectum is noted. Underlying neuropathic process is not thoroughly excluded. The patient was seen in consultation by Infectious Disease (Dr. Alarcon) and the recommendation was to continue treatment with Zosyn and pursue an echocardiogram. He had initially a transthoracic echocardiogram. This showed ejection fraction of 55% to 60% with no significant valvular disease and a transesophageal echocardiogram that showed no evidence of vegetation. Followup blood cultures showed no growth. A gallbladder ultrasound showed cholelithiasis without sonographic features of acute cholecystitis, also hepatomegaly with fatty infiltration of the liver. He was followed by Dr. Alarcon while in the hospital and recommendation is for him to go home with Augmentin for 7 more days and he will follow up as outpatient with Dr. Alarcon and he would also benefit of evaluation by General Surgery to evaluate if cholecystectomy is indicated in the setting of his cholelithiasis. As mentioned above, on admission, the patient had a troponin elevation of 0.33 and this was felt to be secondary to demand ischemia in the setting of septic shock. The patient's echocardiogram did not show focal wall motion abnormalities , but considering the patient's multiple comorbidities and risk factors for coronary artery disease, he would benefit of a stress test as outpatient after his treatment for infection is concluded. The patient was found to have an enlarged thyroid with a mass. TSH was 3, free T4 was 0.9, and TPO was elevated at 76 with a thyroglobulin antibody that was negative. The patient had no complaints of shortness of breath on discharge and no stridor on physical examination. Dr. Fuentes discussed the case with Dr. Munson, who reviewed the patient's CT scan and did not think that the patient 's tracheal deviation was significant and he did not think that the mass was contributing to the patient's clinical picture. He recommended outpatient followup with ENT for an FNA and the patient received information to contact Dr. Munson's office to schedule this appointment. The patient was also noted to have anemia and anemia workup included normal ferritin, borderline B12. The patient was seen in consultation by Hematology ( Dr. Mead) and his impression was the patient's anemia could be related to iron or B12 deficiency and his mild splenomegaly was likely secondary to fatty liver and non- alcoholic steatohepatitis. The patient already has an appointment scheduled to follow up with Dr. Mead on 03/15/19 at 9:50 a.m. A methylmalonic acid level is pending at the time of this dictation. The patient was monitored on telemetry and he had 1 brief episode of bradycardia in the 30s, asymptomatic that resolved spontaneously. The patient was on any negative inotrope agents. After the episode, the patient continued to be watched on telemetry, but no further episodes of significant bradycardia happened. The patient had improvement of his symptoms. He remained afebrile with stable vital signs. His blood cultures became negative. His leukocytosis resolved and the patient felt well enough to be discharged home. He was able to ambulate without assistance and he was not felt to require rehabilitation services. The patient is medically stable to be discharged home today to follow up with his primary care provider, Marianela Gutierrez, on 03/06/19 at 11:15 a.m. PHYSICAL EXAMINATION: Vital Signs: Temperature 97.5, heart rate is 57, respiratory rate is 20, oxygen saturation 96% on room air, blood pressure is 147 /79. General: The patient is a pleasant, morbidly obese, middle-aged gentleman , sitting up on the chair in no acute distress. HEENT: Pupils are equal. Moist mucous membranes. CVS: Normal S1, S2. Regular rate and rhythm. Chest: Breath sounds present bilaterally with no added sounds. Abdomen is obese, soft , nontender. Bowel sounds are present. Extremities: There is mild bilateral lower extremity edema. Neuro: He is alert and oriented x3. Able to move all 4 extremities. DIET: Heart-healthy, consistent carb diet. ACTIVITIES: As tolerated. DISPOSITION: To home. STATUS WHILE IN THE HOSPITAL: Inpatient. CONDITION AT THE TIME OF DISCHARGE: Fair. Please keep in mind that this is a summarized version of this patient's hospital stay. If you need more information, please feel free to call me at or please obtain the full medical records. TIME SPENT: Approximately 45 minutes was spent to complete this discharge. [id number]/[facility] #: [id number] [facility]
== END 2019-02-28 14:00 | disposition home or self-care (01) | DRG 720 ==
LOC: ED 14:18 → ICU 16:48 → MED 02-23 14:36
PROVIDERS: ADMIT Internal Medicine Critical Care Medicine; ATTEND Internal Medicine
PROC: B24BZZ4 Ultrasonography of Heart with Aorta, Transesophageal (ICD-10-PCS; principal; 2019-02-26 14:00)
DX: A40.8 Other streptococcal sepsis (principal); R65.21 Severe sepsis with septic shock; I21.A1 Myocardial infarction type 2; Z68.43 Body mass index [BMI] 50.0-59.9, adult; N17.9 Acute kidney failure, unspecified; E11.9 Type 2 diabetes mellitus without complications; E78.00 Pure hypercholesterolemia, unspecified; I10 Essential (primary) hypertension; K21.9 Gastro-esophageal reflux disease without esophagitis; E78.5 Hyperlipidemia, unspecified; E07.9 Disorder of thyroid, unspecified; E87.6 Hypokalemia; R16.1 Splenomegaly, not elsewhere classified; M17.12 Unilateral primary osteoarthritis, left knee; K80.20 Calculus of gallbladder without cholecystitis without obstruction; E66.01 Morbid (severe) obesity due to excess calories; D51.9 Vitamin B12 deficiency anemia, unspecified; D50.9 Iron deficiency anemia, unspecified; K76.0 Fatty (change of) liver, not elsewhere classified; G47.33 Obstructive sleep apnea (adult) (pediatric); R00.1 Bradycardia, unspecified; Z99.89 Dependence on other enabling machines and devices; Z79.84 Long term (current) use of oral hypoglycemic drugs; Z79.82 Long term (current) use of aspirin
CPT/HCPCS: 36415; 70450; 70490; 71046; 71250; 74177; 76536; 76705; 80048; 80053; 80076; 81003; 81015; 82533; 82607; 82728; 82947; 83540; 83550; 83605; 83735; 83921; 84155; 84165; 84439; 84443; 84484; 85025; 85060; 85610; 86376; 86800; 87040; 87076; 87077; 87086; 87150; 87185; 87186; 87205; 87389; 87497; 87641; 87799; 93005; 93306; 93312; 93325; 94660; 99156; 99157; 99223; 99284; A9270-GY; C8929; J0610; J1644; J2250; J2270; J2310; J2543; J3010; J3370; J3420; J3475; J3480; P9047; Q9967